=== PATIENT | female | born 1935 | race Hispanic/Latino ===

== ENCOUNTER 2017-11-02 19:55 | Inpatient (IN) | payer MEDICARE, OTHER ==
[~2017-11-02] VITALS: Ht 160 cm; Wt 98.6 kg
[~2017-11-02 19:55] MED LIST: ADVAIR 250-501 EACH INH; CARAFATE1 GM/10 ML PO; COMBIGAN EYE DRO5 ML OP; COREG3.125 MG PO; LASIX20 MG PO; LISINOPRIL10 MG PO; LUMIGAN2.5 M1 OP; MILLIPRED5 MG PO; NIFEDICAL XL30 MG PO; PANTOPRAZOLE SO40 MG PO; PROAIR HFA INH8.5 GM INH; SYNTHROID75 MCG PO; TESSALON PERLE100 MG PO; ULTRAM 50MG50 MG PO; XANAX0.5 MG PO; Z.0.DIOVAN160 MG PO; Z.0.HUMIRA40 MG/0.1 INJ; Z.0.MILLIPRED5 MG PO; Z.0.NORVASC5 MG PO; ZOFRAN ODT4 MG SL
--- OUTSIDE RECORDS SUMMARY | 2017-11-02 19:58 | XMS REPORT ---
Author Author [facility] Address Unknown Phone Unavailable Care Team Providers Care Easement Man Name Role Phone MIKO FORD Unavailable Unavailable TONA SHORE Unavailable Unavailable Problems This patient has no known problems. Allergies, Adverse Reactions, Alerts This patient has no known allergies or adverse reactions. Medications This patient has no known medications. Results Test Description Test Time Test Comments Text Results Atomic Results Result Comments ALPHA FETOPROTEIN (AFP), TUMOR MARKER 2017-03-04 15:21:00 ALPHA-FETOPROTEIN (BEAKER) (test miav=9997) 2.0 ng/mL <10.0 Effective 07/27/2014: Reference Range ChangeNew: <10.0 Previous: 0.0- 8.0HEPATIC FUNCTION [id number] 15:01:00* Test Item Value Reference Range Comments TOTAL PROTEIN (BEAKER) (test dxxn=562) 8.6 gm/dL 6.0-8.3 Specimen moderately hemolyzed ALBUMIN (BEAKER) (test fmag=1740) 3.9 g/dL 3.5-5.0 Specimen moderately hemolyzed BILIRUBIN TOTAL (BEAKER) (test njqq=510) 0.4 mg/dL 0.2-1.2 Specimen moderately hemolyzed BILIRUBIN DIRECT (BEAKER) (test xbli=985) 0.1 mg/dL 0.1-0.5 Specimen moderately hemolyzed ALKALINE PHOSPHATASE (BEAKER) (test fmya=374) 61 U/L 40-150 AST (SGOT) (BEAKER) (test fkti=639) 30 U/L 5-34 Specimen moderately hemolyzed ALT (SGPT) (BEAKER) (test ugpz=456) 15 U/L 6-55 Specimen moderately hemolyzed CBC W/PLT COUNT & AUTO [id number] 14:55:00* Test Item Value Reference Range Comments WHITE BLOOD CELL COUNT (BEAKER) (test kvtg=889) 12.3 K/ L 4.0-10.0 RED BLOOD CELL COUNT (BEAKER) (test gclg=711) 5.32 M/ L 4.00-5.00 HEMOGLOBIN (BEAKER) (test hvlw=624) 14.1 GM/DL 12.0-15.0 HEMATOCRIT (BEAKER) (test ypoj=395) 46.0 % 36.0-45.0 MEAN CORPUSCULAR VOLUME (BEAKER) (test goeu=019) 86.4 fL 82.0-99.0 MEAN CORPUSCULAR HEMOGLOBIN (BEAKER) (test pbjx=471) 26.6 pg 27.0-33.0 MEAN CORPUSCULAR HEMOGLOBIN CONC (BEAKER) (test aynz=542) 30.8 GM/DL 32.0- 36.0 RED CELL DISTRIBUTION WIDTH (BEAKER) (test fxzr=309) 14.6 % 10.3-14.2 PLATELET COUNT (BEAKER) (test tyrv=976) 300 K/CU MM 150-430 MEAN PLATELET VOLUME (BEAKER) (test qeio=437) 7.9 fL 6.5-10.5 NUCLEATED RED BLOOD CELLS (BEAKER) (test fpwh=971) 0 /100 WBC 0-0 NEUTROPHILS RELATIVE PERCENT (BEAKER) (test cxcj=945) 74 % LYMPHOCYTES RELATIVE PERCENT (BEAKER) (test qaqb=573) 16 % MONOCYTES RELATIVE PERCENT (BEAKER) (test ckqq=536) 6 % EOSINOPHILS RELATIVE PERCENT (BEAKER) (test hlgf=577) 3 % BASOPHILS RELATIVE PERCENT (BEAKER) (test jbrk=873) 0 % NEUTROPHILS ABSOLUTE COUNT (BEAKER) (test hyxw=336) 9.14 K/ L 1.80-8.00 LYMPHOCYTES ABSOLUTE COUNT (BEAKER) (test gjco=363) 2.02 K/ L 1.48-4.50 MONOCYTES ABSOLUTE COUNT (BEAKER) (test ijko=568) 0.77 K/ L 0.00-1.30 EOSINOPHILS ABSOLUTE COUNT (BEAKER) (test lkba=333) 0.36 K/ L 0.00-0.50 BASOPHILS ABSOLUTE COUNT (BEAKER) (test pkun=156) 0.06 K/ L 0.00-0.20 0.00CHEST 2 VIEWS [place] [address] [place] [address] Patient Name: CORAL GILLIS MR #: [id number] : 1935 Age/Sex: 82/F Req #: [id number] [facility] Physician: Ordered by: MIKO FORD MD Report #: [id number] Location: [facility] Room/Bed: Procedure: [id number] DX/ CHEST 2 VIEWS Exam Date: 08/05/17 Exam Time: 1100 REPORT STATUS: Signed PROCEDURE: CHEST 2 VIEWS TECHNIQUE: PA and lateral chest INDICATION: Nonspecific interstitial pneumonia COMPARISON: [facility], DX, CHEST 2 VIEWS, 06/03/2007, 7:15. [facility], DX, CHEST 2 VIEWS, 12/12/2015, 7:31. [facility] , DX, CHEST 2 VIEWS, 12/15/2015, 16:22. FINDINGS: Lower lobe and peripheral predominant honeycombing without gross bronchiectasis. No focal airspace opacities. No pleural effusions. Mildly enlarged cardiac silhouette with a tortuous thoracic aorta. Enlarged right paratracheal soft tissue and ricky. Intact skeleton. CONCLUSION: 1. Relative to December 2015 there is no interval change in findings of NSIP, including lower lung zone predominant fibrosis. Fibrosis has increased relative to May 2007. 2. Right paratracheal and bilateral hilar soft tissue fullness is also stable , likely representing lymphadenopathy. Dictated by: Raul Pacheco M.D. on 08/05/2017 at 11:43 Electronically approved by: Raul Pacheco M.D. on 08/05/2017 at 11:43 Dictated By: RAUL PACHECO MD [id number] Transcribed By: MAINOR on 08/05/17 1143 COPY TO: MIKO FORD MD
[2017-11-02] MEDS ORDERED: PANTOPRAZOLE 40 MG 10ML VIAL IV STA (20:00)
[2017-11-02] MEDS ORDERED: NITROGLYCERIN 2% OINT 1 GM PKT TOP ONE (20:00)
[2017-11-02] MEDS ORDERED: ONDANSETRON HCL INJ 2 MG/ML VIAL IV STA (20:00)
[2017-11-02] MEDS ORDERED: PANTOPRAZOLE 40 MG 10ML VIAL ONE (20:13)
[2017-11-02] MEDS ORDERED: ONDANSETRON HCL INJ 2 MG/ML VIAL ONE (20:13)
[2017-11-02] MEDS ORDERED: DIATRIZOATE MEGL/DIATRIZOA SOD 30 ML BTL PO ONE (20:14)
[2017-11-02 20:40] LABS: BASOPHILS % 0.3 % (0.0-1.0); EOSINOPHILS # (AUTO) 0.1 (0.0-0.4); EOSINOPHILS % 0.7 % (0.0-6.0); HEMATOCRIT 42.3 % (34.2-44.1); LYMPHOCYTES # (AUTO) 2.4 (1.0-3.2); LYMPHOCYTES % 23.5 % (18.0-39.1); MEAN CORPUSCULAR HGB CONC 33.1 g/dL (31-35); MEAN CORPUSCULAR VOLUME 81.5 fL (81-99); MONOCYTES # (AUTO) 0.8 (0.2-0.8); MONOCYTES % 7.6 % (4.4-11.3); NEUTROPHILS # (AUTO) 6.9 (2.1-6.9); NEUTROPHILS % 67.2 % (38.7-80.0); PLATELET COUNT 340 x10e3/uL (140-360); RED BLOOD COUNT 5.19 x10e6/uL (3.6-5.1); RED CELL DISTRIBUTION WIDTH 14.8 % (11.7-14.4)
[2017-11-02 20:44] LABS: INR 1.02; PARTIAL THROMBOPLASTIN TIME 27.3 seconds (23.8-35.5); PROTHROMBIN TIME 12.6 seconds (11.9-14.5)
--- NOTE | 2017-11-02 20:50 | Diagnostic Imaging Report ---
EXAMINATION: CHEST SINGLE (PORTABLE) INDICATION: Chest pain COMPARISON: Chest x-ray on 12/07/2015 FINDINGS: TUBES and LINES: None. LUNGS: Lungs are not well inflated. There is evidence of perihilar and peripheral bibasilar predominant interstitial changes with few punctate nodularities There is no evidence of pneumonia or pulmonary edema. PLEURA: No pleural effusion or pneumothorax. HEART AND MEDIASTINUM: Cardiac size is mildly enlarged. There are atherosclerotic calcifications within the aorta. Persistent thickening of the right paratracheal stripe BONES AND SOFT TISSUES: No acute osseous lesion. Soft tissues are unremarkable. UPPER ABDOMEN: No free air under the diaphragm. IMPRESSION: 1. Findings compatible with chronic interstitial fibrosis and nodularity most likely related to remote granulomatous infection. 2. Stable right peritracheal stripe thickening since 2015 Signed by: Dr. Wan Pope M.D. on 11/02/2017 8:46 PM
[2017-11-02 20:52] LABS: ALANINE AMINOTRANSFERASE 41 IU/L (0-55); ALBUMIN/GLOBULIN RATIO 0.8 (0.8-2.0); ALKALINE PHOSPHATASE 114 IU/L (40-150); AMYLASE 111 U/L (25-125); ANION GAP 16.6 mmol/L (8-16); BLOOD UREA NITROGEN 31 mg/dL (7-26); BUN/CREATININE RATIO 18 (6-25); CALCIUM 9.4 mg/dL (8.4-10.2); CARBON DIOXIDE 23 mmol/L (22-29); CHLORIDE 104 mmol/L (98-107); CREATINE KINASE 58 IU/L (29-168); CREATININE, SERUM 1.72 mg/dL (0.57-1.11); EST GLOMERULAR FILTRATION RATE 28 ML/MIN (60-); GLUCOSE 134 mg/dL (74-118); LIPASE 41 U/L (8-78); MAGNESIUM 2.2 MG/DL (1.3-2.1); POTASSIUM 3.6 mmol/L (3.5-5.1); SODIUM 140 mmol/L (136-145)
--- NOTE | 2017-11-02 21:00 | Diagnostic Imaging Report ---
EXAMINATION: Head CT HISTORY: Headache, hypertension, vomiting COMPARISON: Head CT on 01/10/2016 TECHNIQUE: Multidetector axial images were obtained without contrast from the foramen magnum to the vertex . The images were reconstructed using brain and bone algorithms. Thin section brain images were reformatted into coronal and sagittal planes. Intravenous contrast: None. Motion/streaking artifact limits the evaluation of the skull base and posterior cranial fossa. FINDINGS: Parenchyma: 1. Unchanged mild chronic microvascular ischemic changes. 2. No mass or hemorrhage. No CT evidence of acute territorial vascular insult. Extra-axial spaces:No abnormal density. No extra-axial fluid collections Brain volume: Normal for age. Ventricles: No hydrocephalus or displacement. Arteries: No density suggestive of thrombus. Dural sinuses: No abnormal density. Extra-axial spaces: No abnormal density. Foramen magnum: No mass, Chiari malformation, or basilar invagination. Sella: Partially into, mostly CSF filled. Paranasal/mastoid sinuses: Imaged portions unremarkable. Skull/Scalp: No lytic or blastic lesions. No fractures. IMPRESSION: 1. No acute intracranial hemorrhage or cortical infarcts. 2. Stable mild chronic microvascular ischemic changes compared to head CT on 11/27/15. Signed by: Dr. Manisha Mondragon M.D. on 11/02/2017 8:57 PM
--- NOTE | 2017-11-02 21:02 | Diagnostic Imaging Report ---
EXAM: CT Abdomen and Pelvis WITHOUT contrast INDICATION: Chest pain and left upper quadrant pain COMPARISON: None. TECHNIQUE: Abdomen and pelvis were scanned utilizing a multidetector helical scanner from the lung base to the pubic symphysis without administration of IV contrast. Absence of intravenous contrast decreases sensitivity for detection of focal lesions and vascular pathology. Coronal and sagittal reformations were obtained. Routine protocol was performed. IV CONTRAST: None. ORAL CONTRAST: Water RADIATION DOSE: Total DLP: 452.66 mGy*cm Estimated effective dose: (DLP x 0.015 x size factor) mSv COMPLICATIONS: None FINDINGS: LINES and TUBES: None. LOWER THORAX: Changes in the lung bases consistent with senile fibrosis demonstrating minimal honeycombing and traction bronchiectasis. These findings are sometimes described as UIP, however, unlikely for patient's age HEPATOBILIARY: No focal hepatic lesions. No biliary ductal dilation. GALLBLADDER: There are cholecystectomy clips. SPLEEN: No splenomegaly. PANCREAS: No focal masses or ductal dilatation. ADRENALS: No adrenal nodules KIDNEYS/URETERS: Diffuse atrophy of the right kidney with cystic changes. Left kidney is within normal limits demonstrating a upper pole 1.6 cm simple cyst. No stones. GI TRACT: No abnormal distention, wall thickening, or evidence of bowel obstruction. There are diverticula within the colon without evidence of diverticulitis. Appendix is normal. PELVIC ORGANS/BLADDER: Unremarkable. LYMPH NODES: No lymphadenopathy. VESSELS: There is moderate atherosclerotic disease in the aorta and major arterial branches. PERITONEUM / RETROPERITONEUM: No free air or fluid. BONES: There are severe degenerative changes in the lumbar spine predominantly involving the facet joints with anterolisthesis of L4 on L5.. SOFT TISSUES: Unremarkable. IMPRESSION: 1. No evidence of acute intra-abdominal or pelvic abnormality. 2. Changes in the lung bases compatible with senile pulmonary fibrosis. 3. Moderate atherosclerotic disease 4. Colonic diverticulosis without diverticulitis. Signed by: Dr. Wan Pope M.D. on 11/02/2017 8:58 PM
[2017-11-02 21:03] LABS: B-TYPE NATRIURETIC PEPTIDE2 182.7 pg/mL (0-100)
[2017-11-02] MEDS ORDERED: HYDRALAZINE HCL 20 MG/ML VIAL IV STA (21:20)
[2017-11-02] MEDS ORDERED: COMBIGAN EYE DRO5 ML OU (21:41)
[2017-11-02] MEDS ORDERED: LUMIGAN2.5 M1 OU (21:41)
[2017-11-02] MEDS ORDERED: ACTONEL150 MG PO (21:41)
[2017-11-02 22:28] LABS: BILIRUBIN,URINE NEGATIVE (NEGATIVE); KETONES,URINE NEGATIVE (NEGATIVE); LEUKOCYTE ESTERASE ,URINE NEGATIVE (NEGATIVE); NITRITE,URINE NEGATIVE (NEGATIVE); PROTEIN,URINE DIPSTICK 3+ (NEGATIVE); URINE UROBILINOGEN 0.2 mg/dL (0.2 - 1)
[2017-11-02 22:40] LABS: CLARITY,URINE CLEAR (CLEAR); COLOR,URINE YELLOW (YELLOW)
[2017-11-02 22:42] LABS: BACTERIA,URINE FEW /HPF; EPITHELIAL CELLS,URINE FEW /LPF
[2017-11-02] MEDS ORDERED: SODIUM CHLORIDE 0.9% 1000ML 1,000 ML IV SCH (23:45)
[2017-11-03] VITALS (9 sets, daily range): BP systolic 127–252; BP diastolic 62–122
[2017-11-03] MEDS: NITROGLYCERIN 2% OINT 1 GM PKT TOP SCH ×2 (01:06→05:26)
[2017-11-03] MEDS: HYDRALAZINE HCL 20 MG/ML VIAL IV PRN ×3 (01:14→11:15)
[2017-11-03] MEDS: ONDANSETRON HCL INJ 2 MG/ML VIAL IV PRN ×2 (02:00→07:43)
[2017-11-03 03:24] LABS: CREATINE KINASE MB 1.4 ng/mL (0-5.0)
[2017-11-03] MEDS: ASPIRIN 81 MG ENTERIC COATED PO SCH (07:43)
[2017-11-03] MEDS: NIFEDIPINE CR 30 MG TAB PO SCH ×3 (07:45→08:43)
[2017-11-03] MEDS: FAMOTIDINE 20 MG/2 ML VIAL IV SCH ×2 (08:00→22:14)
[2017-11-03] MEDS ORDERED: CARVEDILOL 3.125 MG TAB PO SCH (09:00)
[2017-11-03] MEDS ORDERED: PANTOPRAZOLE 40 MG 10ML VIAL IV SCH (09:00)
[2017-11-03] MEDS: CLONIDINE HCL 0.1 MG TAB PO PRN (11:50)
[2017-11-03] MEDS ORDERED: LISINOPRIL 10 MG TAB PO SCH (13:30)
[2017-11-03] MEDS: SODIUM CHLORIDE 0.45% 1,000 ML IV SCH ×2 (14:58→16:27)
[2017-11-03 15:48] LABS: BASOPHILS % 0.2 % (0.0-1.0); EOSINOPHILS # (AUTO) 0.2 (0.0-0.4); EOSINOPHILS % 1.9 % (0.0-6.0); HEMATOCRIT 37.3 % (34.2-44.1); HEMOGLOBIN 12.1 g/dL (12.0-16.0); LYMPHOCYTES # (AUTO) 1.9 (1.0-3.2); LYMPHOCYTES % 19.9 % (18.0-39.1); MEAN CORPUSCULAR HGB CONC 32.4 g/dL (31-35); MEAN CORPUSCULAR VOLUME 83.3 fL (81-99); MONOCYTES # (AUTO) 0.9 (0.2-0.8); MONOCYTES % 9.9 % (4.4-11.3); NEUTROPHILS # (AUTO) 6.3 (2.1-6.9); NEUTROPHILS % 67.6 % (38.7-80.0); PLATELET COUNT 290 x10e3/uL (140-360); RED BLOOD COUNT 4.48 x10e6/uL (3.6-5.1); RED CELL DISTRIBUTION WIDTH 15.1 % (11.7-14.4)
[2017-11-03 16:13] LABS: ALBUMIN 3.2 g/dL (3.5-5.0); ALBUMIN/GLOBULIN RATIO 0.9 (0.8-2.0); ANION GAP 14.9 mmol/L (8-16); CALCIUM 8.4 mg/dL (8.4-10.2); CHOL/HDL RATIO 3.2 (3.0-3.6); CREATININE, SERUM 1.87 mg/dL (0.57-1.11); POTASSIUM 3.9 mmol/L (3.5-5.1)
[2017-11-03] MEDS: PANTOPRAZOLE SOD 40 MG TABEC PO SCH (16:27)
[2017-11-03] MEDS: CARVEDILOL 12.5 MG TAB PO SCH (16:27)
--- NOTE | 2017-11-03 16:27 | History and Physical ---
PRIMARY CARE PHYSICIAN: Dr. Disha Pascual. ATTENDING PHYSICIAN: Dr. Brian Meyers. CHIEF COMPLAINT: Hypertensive urgency associated with nausea and vomiting, associated with side effects of Tylenol No. 3 and Codeine. HISTORY OF PRESENT ILLNESS: Patient is an 82-year-old female with hypertension, hypothyroidism, and severe rheumatoid arthritis, getting Humira every 2 weeks. The patient basically was in pain. She was getting Tylenol No. 3 and apparently she was unable to tolerate the medication. This induced nausea and vomiting, subsequently came to the emergency room with epigastric pain and headaches, and her blood pressure was 222/145. Patient was given antiemetic. She is still having high blood pressure. She received nifedipine XL and remained elevated. Her blood pressure now is 212/104. The patient remains stable however. PAST MEDICAL HISTORY 1. Severe rheumatoid arthritis with joint deformity, especially of the hand and chronic pain of the back, neck, and shoulder. 2. Hypertension. 3. History of glaucoma. 4. Reflux. 5. Osteoporosis. ALLERGIES: CODEINE, CEFUROXIME, DILTIAZEM, AND LEVOTHYROXINE. PAST SURGICAL HISTORY: Noncontributory. SOCIAL HISTORY: Patient does not smoke or use alcohol. No recreational drugs. REVIEW OF SYSTEMS: Nausea and vomiting, improving. PHYSICAL EXAMINATION VITAL SIGNS: Temperature is 98, blood pressure 212/104, previously on admission was 222/145, heart rate 97, and respirations 18. GENERAL: The patient seems comfortable. She is not in any distress. HEENT: Normocephalic, atraumatic. Anicteric. NECK: Supple grossly. PULMONARY: Diminished breath sounds without any wheezing or rales. CARDIOVASCULAR: Regular rate and rhythm. ABDOMEN: Soft. EXTREMITIES: Joint deformity without any gross edema or cyanosis. NEUROLOGIC: No focal deficit. LABORATORY: Sodium is 140, potassium 3.6, chloride 104, bicarb 23, BUN 31, creatinine 1.7, and glucose is 1.34. WBC is 10, hemoglobin 14, hematocrit 42, and platelets is 340. IMPRESSION 1. Intractable nausea and vomiting associated WITH hypertensive urgency, most likely secondary to Codeine-induced side effect. 2. Dehydration, nausea, and vomiting. 3. Baseline rheumatoid arthritis. 4. Baseline chronic pain. PLAN: Half normal saline 75 mL an hour. Blood pressure control. Continue with same home medications except for the Lasix. Nifedipine XL. We will monitor the patient closely, adjust her medications, and Will follow up on a closely basis. Job#: [id number] NELIDA
[2017-11-03] MEDS ORDERED: PREDNISONE5 MG PO (16:33)
[2017-11-03 16:37] LABS: CREATINE KINASE MB 1.1 ng/mL (0-5.0)
[2017-11-03] MEDS ORDERED: NIFEDIPINE CR 30 MG TAB PO SCH (21:00)
[2017-11-03] MEDS: LISINOPRIL 10 MG TAB PO SCH (22:14)
[2017-11-04 00:15] VITALS: BP 181/91
[2017-11-04] MEDS: HYDRALAZINE HCL 20 MG/ML VIAL IV PRN (00:43)
[2017-11-04 04:20] VITALS: BP 163/77
[2017-11-04] MEDS ORDERED: NIFEDIPINE CR 30 MG TAB PO SCH (06:00)
[2017-11-04 06:38] VITALS: BP 163/77
[2017-11-04] MEDS: LEVOTHYROXINE SODIUM 88 MCG TAB PO SCH (06:38)
[2017-11-04 07:05] LABS: BASOPHILS # (AUTO) 0.1 (0.0-0.1); BASOPHILS % 0.5 % (0.0-1.0); EOSINOPHILS # (AUTO) 0.3 (0.0-0.4); EOSINOPHILS % 3.1 % (0.0-6.0); HEMATOCRIT 37.8 % (34.2-44.1); HEMOGLOBIN 12.2 g/dL (12.0-16.0); LYMPHOCYTES # (AUTO) 2.5 (1.0-3.2); MEAN CORPUSCULAR HEMOGLOBIN 26.9 pg (28-32); MEAN CORPUSCULAR HGB CONC 32.3 g/dL (31-35); MEAN CORPUSCULAR VOLUME 83.4 fL (81-99); MONOCYTES % 9.1 % (4.4-11.3); NEUTROPHILS # (AUTO) 6.6 (2.1-6.9); NEUTROPHILS % 62.6 % (38.7-80.0); PLATELET COUNT 277 x10e3/uL (140-360); RED BLOOD COUNT 4.53 x10e6/uL (3.6-5.1); RED CELL DISTRIBUTION WIDTH 15.4 % (11.7-14.4)
[2017-11-04] MEDS: PANTOPRAZOLE SOD 40 MG TABEC PO SCH ×2 (07:50→16:25)
[2017-11-04] MEDS: CARVEDILOL 12.5 MG TAB PO SCH ×2 (08:00→16:50)
[2017-11-04] MEDS: BIMATOPROST(OPTH) 2.5 ML BOTTLE OP SCH (08:05)
[2017-11-04] MEDS: ASPIRIN 81 MG ENTERIC COATED PO SCH (08:05)
[2017-11-04] MEDS: PREDNISONE 5 MG TAB PO SCH (08:05)
[2017-11-04] MEDS: LISINOPRIL 10 MG TAB PO SCH ×2 (08:05→16:50)
[2017-11-04] MEDS: FAMOTIDINE 20 MG/2 ML VIAL IV SCH ×2 (08:05→21:03)
[2017-11-04] MEDS: BRIMONIDINE/TIMOLOL (OPTH SOLN 5 ML DRPETTE OP SCH (08:05)
[2017-11-04 08:34] VITALS: BP 177/80
[2017-11-04] MEDS ORDERED: PREDNISOLONE 1 MG PO SCH (09:00)
[2017-11-04] MEDS ORDERED: NIFEDIPINE CR 30 MG TAB PO NR (09:30)
[2017-11-04] MEDS: SODIUM CHLORIDE 0.45% 1,000 ML IV SCH (16:10)
[2017-11-04 16:58] VITALS: BP 160/80
[2017-11-04 20:00] VITALS: BP 144/70
[2017-11-05] VITALS: BP 146/82
[2017-11-05 04:00] VITALS: BP 201/106
[2017-11-05] MEDS: HYDRALAZINE HCL 20 MG/ML VIAL IV PRN (05:38)
[2017-11-05 05:49] VITALS: BP 201/106
[2017-11-05] MEDS: LEVOTHYROXINE SODIUM 88 MCG TAB PO SCH (06:24)
[2017-11-05] MEDS: SODIUM CHLORIDE 0.45% 1,000 ML IV SCH ×2 (06:25→17:25)
[2017-11-05 07:08] LABS: ALBUMIN 3.1 g/dL (3.5-5.0); ALBUMIN/GLOBULIN RATIO 0.8 (0.8-2.0); ANION GAP 12.2 mmol/L (8-16); CALCIUM 8.5 mg/dL (8.4-10.2); CREATININE, SERUM 1.89 mg/dL (0.57-1.11); POTASSIUM 4.2 mmol/L (3.5-5.1)
[2017-11-05] MEDS: PANTOPRAZOLE SOD 40 MG TABEC PO SCH ×2 (08:00→16:31)
[2017-11-05] MEDS: CARVEDILOL 12.5 MG TAB PO SCH ×2 (08:00→16:31)
[2017-11-05] MEDS: LISINOPRIL 10 MG TAB PO SCH ×2 (08:50→16:32)
[2017-11-05] MEDS: FAMOTIDINE 20 MG/2 ML VIAL IV SCH (08:50)
[2017-11-05] MEDS: BRIMONIDINE/TIMOLOL (OPTH SOLN 5 ML DRPETTE OP SCH (08:50)
[2017-11-05] MEDS: PREDNISONE 5 MG TAB PO SCH (08:50)
[2017-11-05] MEDS: ASPIRIN 81 MG ENTERIC COATED PO SCH (08:50)
[2017-11-05] MEDS: BIMATOPROST(OPTH) 2.5 ML BOTTLE OP SCH (08:50)
[2017-11-05] MEDS: NIFEDIPINE CR 30 MG TAB PO SCH (08:50)
[2017-11-05 08:51] VITALS: BP 119/63
[2017-11-05 15:39] VITALS: BP 169/83
[2017-11-05 20:00] VITALS: BP 182/85
[2017-11-06] VITALS (9 sets, daily range): BP systolic 140–192; BP diastolic 68–90
[2017-11-06] MEDS: LEVOTHYROXINE SODIUM 88 MCG TAB PO SCH (06:00)
[2017-11-06] MEDS: BRIMONIDINE/TIMOLOL (OPTH SOLN 5 ML DRPETTE OP SCH (09:00)
[2017-11-06] MEDS: BIMATOPROST(OPTH) 2.5 ML BOTTLE OP SCH (09:00)
--- NOTE | 2017-11-06 09:20 | Discharge Summary ---
PCP: Dr. Disha Vang FINAL DIAGNOSES 1. Hypertensive malignancy associated with nausea, vomiting and associated with dehydration, elevation of liver enzymes, and intractable headaches, which symptoms now resolved. 2. Side effects to Tylenol No. 3 causing nausea and vomiting, and unable to tolerate any of her blood pressure medication. 3. Baseline rheumatoid arthritis with joint deformity, on multiple medications. SUMMARY: An 82-year-old female came in with intractable nausea, vomiting and severe headache associated with a very elevated blood pressure. Patient's systolic blood pressure was over 210. Patient was with intractable nausea and vomiting, and multiple medications were given. She was having dehydration. BUN and creatinine elevation. The patient was placed on medication. She did better. Blood pressure improved slowly. At this time, she is stable. She is comfortable. The patient will go home today. She will continue with home medications. Adjustment including Coreg 12.5 mg twice a day. The patient will stop the 6.25 mg. Patient is stable and discharged home to follow as an outpatient. She will continue her other medication. Advised the patient to stop the Tylenol No. 3. Her liver enzymes are trending downward. AST is 41 and ALT 74. Total bilirubin 0.6 and alkaline phosphatase is 84. Other blood work including sodium 136, potassium 4.2, chloride 105, bicarb 23, BUN 34, creatinine 1.8, and glucose 105. WBC 10.5, hemoglobin 12, hematocrit 37.8, and platelets is 277,000. The patient was discharged home today. DISCHARGE MEDICATIONS 1. Coreg 12.5 mg twice a day. 2. Zofran ODT 4 mg sublingual q.4 h. as needed for nausea and vomiting. 3. Pepcid 20 mg twice a day for increasing reflux. The patient is stable and discharged home today. Job#: [id number] YOGESH
[2017-11-06] MEDS: FAMOTIDINE 20 MG TAB PO SCH ×2 (09:33→16:25)
[2017-11-06] MEDS: PANTOPRAZOLE SOD 40 MG TABEC PO SCH ×2 (09:33→16:25)
[2017-11-06] MEDS: LISINOPRIL 10 MG TAB PO SCH ×2 (09:34→16:25)
[2017-11-06] MEDS: CARVEDILOL 12.5 MG TAB PO SCH ×2 (09:34→16:25)
[2017-11-06] MEDS: NIFEDIPINE CR 30 MG TAB PO SCH (09:34)
[2017-11-06] MEDS: ASPIRIN 81 MG ENTERIC COATED PO SCH (09:34)
[2017-11-06] MEDS: PREDNISONE 5 MG TAB PO SCH (09:34)
[2017-11-06] MEDS: CLONIDINE HCL 0.1 MG TAB PO PRN (14:40)
[2017-11-06] MEDS: HYDRALAZINE HCL 20 MG/ML VIAL IV PRN (14:40)
== END 2017-11-06 18:32 | disposition home or self-care (01) | DRG 305 ==
LOC: ER 19:55 → MED/SURG3 11-03 00:46
PROVIDERS: ADMIT Internal Medicine; ATTEND Internal Medicine
DX: I16.1 Hypertensive emergency (principal); E86.0 Dehydration; M06.9 Rheumatoid arthritis, unspecified; T40.2X5A Adverse effect of other opioids, initial encounter; H40.9 Unspecified glaucoma; M81.0 Age-related osteoporosis without current pathological fracture; K21.9 Gastro-esophageal reflux disease without esophagitis; K29.70 Gastritis, unspecified, without bleeding
CPT/HCPCS: 36415; 70450; 71045; 74176; 80053; 80061; 81001; 82150; 82550; 82553; 83605; 83690; 83735; 83880; 84484; 85025; 85610; 85730; 87086; 93005; 99284; J0360; J2405; J7030; J7512

== ENCOUNTER 2018-04-05 13:42 | Inpatient (IN) | payer MEDICARE ==
[~2018-04-05] VITALS: Ht 160 cm; Wt 71.7 kg
[~2018-04-05 13:42] MED LIST changes: +ACTONEL150 MG PO; +COMBIGAN EYE DRO5 ML OU; +LUMIGAN2.5 M1 OU; +PREDNISONE5 MG PO
[2018-04-05] MEDS ORDERED: ACETAMINOPHEN 325 MG TAB PO ONE (14:15)
[2018-04-05 14:43] LABS: BACTERIA,URINE RARE /HPF; BILIRUBIN,URINE NEGATIVE (NEGATIVE); CLARITY,URINE CLEAR (CLEAR); COLOR,URINE YELLOW (YELLOW); EPITHELIAL CELLS,URINE FEW /LPF; KETONES,URINE NEGATIVE (NEGATIVE); LEUKOCYTE ESTERASE ,URINE NEGATIVE (NEGATIVE); NITRITE,URINE NEGATIVE (NEGATIVE); PROTEIN,URINE DIPSTICK 1+ (NEGATIVE); RBC,URINE 0-5 /HPF (0-5); URINE UROBILINOGEN 0.2 mg/dL (0.2 - 1); WBC,URINE (MAN) 0-5 /HPF (0-5)
--- NOTE | 2018-04-05 14:56 | Diagnostic Imaging Report ---
EXAMINATION: CHEST 2 VIEWS INDICATION: \S\cough, SOB \S\[id number] \S\1430 COMPARISON: None FINDINGS: PA and lateral views TUBES and LINES: None. LUNGS: Low lung volumes. Diffuse bilateral pulmonary fibrosis with worsening areas of groundglass opacities mainly in both lung bases. No lobar consolidations. PLEURA: No pleural effusion or pneumothorax. HEART AND MEDIASTINUM: Stable mild enlargement of the cardiac silhouette. Tortuous thoracic aorta. BONES AND SOFT TISSUES: No acute osseous lesion. Soft tissues are unremarkable. UPPER ABDOMEN: No free air under the diaphragm. IMPRESSION: Diffuse bilateral pulmonary fibrosis with progressive areas of ground glass opacities may be due to progressive disease or superimposed atypical infection. Signed by: Dr. Florinda Golden M.D. on 04/05/2018 2:52 PM
[2018-04-05] MEDS ORDERED: BENZONATATE 100 MG CAP PO PRN (15:45)
[2018-04-05] MEDS ORDERED: AZITHROMYCIN 500MG/NS 250 ML 250 ML IV STA (15:52)
[2018-04-05 15:54] LABS: BASOPHILS # (AUTO) 0.1 (0.0-0.1); BASOPHILS % 0.4 % (0.0-1.0); EOSINOPHILS # (AUTO) 0.3 (0.0-0.4); EOSINOPHILS % 2.4 % (0.0-6.0); HEMATOCRIT 38.1 % (34.2-44.1); HEMOGLOBIN 12.4 g/dL (12.0-16.0); LYMPHOCYTES # (AUTO) 1.7 (1.0-3.2); LYMPHOCYTES % 13.1 % (18.0-39.1); MEAN CORPUSCULAR HEMOGLOBIN 26.1 pg (28-32); MEAN CORPUSCULAR HGB CONC 32.5 g/dL (31-35); MEAN CORPUSCULAR VOLUME 80.2 fL (81-99); MONOCYTES # (AUTO) 0.9 (0.2-0.8); MONOCYTES % 6.9 % (4.4-11.3); NEUTROPHILS # (AUTO) 9.7 (2.1-6.9); NEUTROPHILS % 76.5 % (38.7-80.0); PLATELET COUNT 384 x10e3/uL (140-360); RED BLOOD COUNT 4.75 x10e6/uL (3.6-5.1); RED CELL DISTRIBUTION WIDTH 14.3 % (11.7-14.4)
[2018-04-05] MEDS ORDERED: AZITHROMYCIN 500MG/NS 250 ML 250 ML IV SCH (16:00)
[2018-04-05] MEDS ORDERED: CEFTRIAXONE SOD 1 GM VIAL IV SCH (16:00)
[2018-04-05 16:15] LABS: B-TYPE NATRIURETIC PEPTIDE2 122.3 pg/mL (0-100)
[2018-04-05 16:17] LABS: ALBUMIN 3.4 g/dL (3.5-5.0); ALBUMIN/GLOBULIN RATIO 0.7 (0.8-2.0); ANION GAP 16.7 mmol/L (8-16); CREATININE, SERUM 1.74 mg/dL (0.57-1.11); POTASSIUM 3.7 mmol/L (3.5-5.1)
[2018-04-05 16:23] LABS: CREATINE KINASE MB 0.9 ng/mL (0-5.0)
[2018-04-05] MEDS ORDERED: ERTAPENEM 1GM/NS 100ML 100 ML IV SCH (16:45)
[2018-04-05] MEDS: SODIUM CHLORIDE 0.9% 1000ML 1,000 ML IV SCH (18:05)
[2018-04-05] MEDS: ALBUTEROL SULF 0.083% NEB SOLN 3 ML NEB NEB SCH ×2 (18:10→22:20)
[2018-04-05 19:30] VITALS: BP 172/79
[2018-04-05] MEDS ORDERED: ALBUTEROL SULFATE HFA 8GM INHALATION AEROSOL INH PRN (20:45)
[2018-04-05] MEDS ORDERED: GUAIFENESIN/CODEINE 10 ML CUP PO PRN (20:45)
[2018-04-05] MEDS: NIFEDIPINE CR 30 MG TAB PO SCH (21:13)
[2018-04-05] MEDS ORDERED: MELATONIN 5 MG TABLET PO PRN (21:15)
[2018-04-05] MEDS: METHYLPREDNISOLONE SOD SUCC 40 MG/ML VIAL IV SCH (21:46)
--- NOTE | 2018-04-05 21:54 | History and Physical ---
CHIEF COMPLAINT: Shortness of breath, cough, congestion, subjective fever. HPI: This is an 82-year-old female with known history of gastritis, rheumatoid arthritis, now also with history of pulmonary fibrosis and also hypertension, uncontrolled, who presents to the ED with complaints of shortness of breath ongoing for the last 1 week at home. Patient reports she recently saw her primary care physician earlier in the week and was given a shot of steroids as well as antibiotics and discharged on oral antibiotics at home. Patient progressively continued to get worse with worsening cough and congestion and subjective fever. Denies any chest pain or palpitations. Due to the worsening shortness of breath, patient came to the ED for further evaluation. Patient denies any history of heart failure and also she is not on any home oxygen. Patient was seen and evaluated at bedside on the medical floor, currently doing well with no other complaints at this time. She is currently on nasal cannula, satting well, and her vital signs are stable. In reviewing her chart, patient had PFT done in the past that was consistent with restrictive lung disease, likely due to idiopathic pulmonary fibrosis. She has been following up with Dr. Edgar pulmonary as an outpatient. REVIEW OF SYSTEMS: Pertinent positive: Shortness of breath, cough, congestion, subjective fever. Pertinent negative: Denies any chest pain, palpitation, nausea, vomiting, diarrhea, dysuria, hematuria, frequency, urgency, lightheadedness, dizziness, abdominal pain, headache, or any other complaints. The rest of the 14-point review of systems have been reviewed with the patient and are negative. ALLERGIES: TO CEFUROXIME, DILTIAZEM, LEVAQUIN. HOME MEDICATIONS: Albuterol. She also takes some eye drops. She takes Humira, 5 mg of prednisone daily, Protonix, nifedipine XL 30 mg daily, lisinopril 10 mg b.i.d., levothyroxine 75 mcg daily, Lasix 20 mg daily. PAST MEDICAL HISTORY: Hypertension, rheumatoid arthritis, pulmonary fibrosis, osteoporosis. SURGICAL HISTORY: None. FAMILY HISTORY: Hypertension and diabetes. SOCIAL HISTORY: Denies any drugs or alcohol. Does not smoke. Good social support. She has children. PHYSICAL EXAMINATION: VITAL SIGNS: Temperature is 98, her T-max was 100.6, pulse 63, respiratory rate is 19, blood pressure 172/79, pulse ox 98% on 3 liters nasal cannula. GENERAL: Not in acute distress, alert and oriented x3, cooperative on exam. HEENT: Head: Normocephalic, atraumatic. Eyes: Pupils equal, round, and reactive to light bilaterally. Extraocular movements intact bilaterally. Throat: No evidence of any erythema or exudates in the posterior pharynx. Has poor dentition. NECK: Supple with good range of motion. PULMONARY: Patient has fine crackles appreciated throughout, more like a Velcro sound. No rhonchi. She did have some expiratory wheezing. Inspiratory effort was good. CARDIOVASCULAR: Positive S1 and S2. No murmurs, rubs, or gallops appreciated. ABDOMEN: Soft, nondistended, nontender to palpation. Bowel sounds are present. MUSCULOSKELETAL: Strength is 5/5 throughout. No evidence of any musculoskeletal deficit on examination. No weakness appreciated. NEUROLOGICAL: Cranial nerves II through XII are grossly intact. No evidence of any neurologic deficits on exam. SKIN: Intact. Warm to touch. Good cap refill. PSYCHIATRIC: Normal affect and mood. EXTREMITIES: No edema. Good range of motion throughout. LABS: White count 12.6, hemoglobin is 12.4, hematocrit is 38, and platelets of 384,000. Chemistry: Sodium 135, potassium 3.7, chloride 99, bicarb 23, anion gap of 16, BUN is 23, creatinine is 1.7 and her baseline creatinine is between 1.5 to 2, glucose 180. Lactic acid is 12, normal. Calcium 9. LFTs were normal. Troponin negative. BNP 122. Albumin is 3.4, lipase is 29. Urinalysis was found to be negative. Blood cultures are pending. IMAGING STUDIES: Chest x-ray shows diffuse bilateral pulmonary fibrosis with progressive areas of ground-glass opacities, may be due to progressive disease or superimposed atypical infection. ASSESSMENT: 1. Acute pulmonary fibrosis exacerbation. 2. Rheumatoid arthritis. 3. Hypertension. 4. Prophylaxis. 5. Chronic kidney disease, stage 4, at baseline. PLAN: At this time, I will consult pulmonary to evaluate the patient. In the past, she has had PFTs consistent with restrictive lung disease, likely consistent with pulmonary fibrosis from underlying rheumatoid arthritis. Will put on IV steroids 40 mg IV q.8, neb treatments, and/or IV azithromycin for the flareup. Will give her some Robitussin with Codeine as well as Tessalon Perles for cough as needed. In relation to her blood pressure, we are going to resume all her home medications and restart her nifedipine XL for tonight. She also will get p.r.n. hydralazine as well. Will also start her on Lovenox for DVT prophylaxis. Resume all her home medications. Put on low-dose IV fluids at 75 mL per hour. Will continue with IV fluids for now. Put on a heart healthy diet. Monitor the patient very closely. Resume same home medications, and consult pulmonary. Job#: [id number]
[2018-04-05 23:35] VITALS: BP 172/79
[2018-04-06] VITALS (7 sets, daily range): BP systolic 144–178; BP diastolic 75–85
[2018-04-06 02:56] LABS: CREATINE KINASE MB 0.7 ng/mL (0-5.0)
[2018-04-06] MEDS: ALBUTEROL SULF 0.083% NEB SOLN 3 ML NEB NEB SCH ×6 (03:20→23:30)
[2018-04-06 04:46] LABS: BASOPHILS % 0.2 % (0.0-1.0); HEMATOCRIT 37.1 % (34.2-44.1); LYMPHOCYTES # (AUTO) 0.9 (1.0-3.2); LYMPHOCYTES % 13.8 % (18.0-39.1); MEAN CORPUSCULAR HEMOGLOBIN 26.3 pg (28-32); MEAN CORPUSCULAR HGB CONC 32.3 g/dL (31-35); MEAN CORPUSCULAR VOLUME 81.4 fL (81-99); MONOCYTES # (AUTO) 0.1 (0.2-0.8); MONOCYTES % 1.3 % (4.4-11.3); NEUTROPHILS # (AUTO) 5.2 (2.1-6.9); NEUTROPHILS % 83.9 % (38.7-80.0); PLATELET COUNT 359 x10e3/uL (140-360); RED BLOOD COUNT 4.56 x10e6/uL (3.6-5.1); RED CELL DISTRIBUTION WIDTH 14.5 % (11.7-14.4)
[2018-04-06 05:05] LABS: ANION GAP 14.2 mmol/L (8-16); CALCIUM 8.6 mg/dL (8.4-10.2); CREATININE, SERUM 1.69 mg/dL (0.57-1.11); POTASSIUM 4.2 mmol/L (3.5-5.1)
[2018-04-06] MEDS: METHYLPREDNISOLONE SOD SUCC 40 MG/ML VIAL IV SCH ×3 (05:54→21:29)
[2018-04-06] MEDS: SODIUM CHLORIDE 0.9% 1000ML 1,000 ML IV SCH ×2 (08:30→13:45)
[2018-04-06] MEDS: LEVOTHYROXINE SODIUM 75 MCG TAB PO SCH (09:00)
[2018-04-06] MEDS ORDERED: BIMATOPROST(OPTH) 2.5 ML BOTTLE OP SCH (09:00)
[2018-04-06] MEDS: FUROSEMIDE 20 MG TAB PO SCH (09:00)
[2018-04-06] MEDS: PANTOPRAZOLE SOD 40 MG TABEC PO SCH ×2 (09:00→17:00)
[2018-04-06 09:11] LABS: CREATINE KINASE MB 0.7 ng/mL (0-5.0)
[2018-04-06] MEDS: BRIMONIDINE/TIMOLOL (OPTH SOLN 5 ML DRPETTE OP SCH (13:00)
[2018-04-06] MEDS: CLINDAMYCIN PHOS 900MG/ D5W 50 50 ML IV SCH ×3 (13:00→21:29)
--- NOTE | 2018-04-06 14:52 | Consultation ---
DATE OF CONSULTATION: April 06, 2018 PULMONARY CONSULTATION A charming but unfortunate 82-year-old woman with a history of interstitial fibrosis, presumably NSIP, shortness of breath, coughing productively for the last 2 weeks despite Ceftin therapy, history of hypothyroidism, glaucoma. ALLERGIES: CARDIZEM, CEFTIN, LEVAQUIN. MEDICATIONS: , Coreg, Lasix, Humira, Levoxyl, nifedipine, Protonix, prednisone 5, ProAir and Carafate, Restasis, Lumigan and Combigan. PAST SURGICAL HISTORY: She has had , gallbladder surgery, cervical spine surgery. SOCIAL HISTORY: She is an ex-smoker, quit 30 years ago. She worked on a farm. FAMILY HISTORY: Positive for strokes and diabetes. PHYSICAL EXAMINATION GENERAL: She is awake and alert, looking her stated age. Severe rheumatoid changes noted. VITAL SIGNS: Temperature 96, pulse 55, blood pressure 144/79. HEAD: Head normocephalic, atraumatic. NECK: Trachea midline. LUNGS: Bilateral rales, right greater than left. Velcro crackles. HEART: Regular rhythm. ABDOMEN: Nontender. EXTREMITIES: [place] neck and rheumatoid deformities noted. ASSESSMENT AND PLAN Therapy for rheumatoid arthritis, NSIP, community-acquired pneumonia, apparently resistant to Ceftin. She is currently on Zithromax, moderate dose of corticosteroids. Check sputum. Consider anti-Staph cover. Thank you for this kind referral. Job#: [id number]
[2018-04-06] MEDS: AZTREONAM 1 GM/NS 50 ML 50 ML IV SCH (15:00)
[2018-04-06] MEDS ORDERED: IPRATROPIUM BROMIDE 0.02% 2.5 ML NEB NEB PRN (16:00)
[2018-04-06] MEDS: AZITHROMYCIN 250 MG TAB PO SCH (16:00)
[2018-04-06] MEDS: LISINOPRIL 10 MG TAB PO SCH (17:00)
[2018-04-06] MEDS: ENOXAPARIN SOD INJ 40 MG/0.4 ML SYR SC SCH (17:00)
[2018-04-06] MEDS: IPRATROPIUM BROMIDE 0.02% 2.5 ML NEB NEB SCH ×2 (19:15→23:30)
[2018-04-06] MEDS: NIFEDIPINE CR 30 MG TAB PO SCH (20:40)
[2018-04-06] MEDS: BIMATOPROST(OPTH) 2.5 ML BOTTLE OP SCH (20:40)
[2018-04-06] MEDS ORDERED: METHYLPREDNISOLONE SOD SUCC 40 MG/ML VIAL IV SCH (22:00)
[2018-04-07] VITALS (7 sets, daily range): BP systolic 139–176; BP diastolic 73–82
[2018-04-07] MEDS: AZTREONAM 1 GM/NS 50 ML 50 ML IV SCH ×2 (02:47→15:00)
[2018-04-07] MEDS: IPRATROPIUM BROMIDE 0.02% 2.5 ML NEB NEB SCH ×6 (03:00→22:40)
[2018-04-07] MEDS: ALBUTEROL SULF 0.083% NEB SOLN 3 ML NEB NEB SCH ×6 (03:00→22:40)
[2018-04-07] MEDS: SODIUM CHLORIDE 0.9% 1000ML 1,000 ML IV SCH (04:49)
[2018-04-07] MEDS: METHYLPREDNISOLONE SOD SUCC 40 MG/ML VIAL IV SCH (05:38)
[2018-04-07] MEDS: CLINDAMYCIN PHOS 900MG/ D5W 50 50 ML IV SCH ×3 (05:38→22:15)
[2018-04-07] MEDS: LEVOTHYROXINE SODIUM 75 MCG TAB PO SCH (09:00)
[2018-04-07] MEDS: PANTOPRAZOLE SOD 40 MG TABEC PO SCH ×2 (09:00→16:45)
[2018-04-07] MEDS: LISINOPRIL 10 MG TAB PO SCH ×2 (09:00→16:45)
[2018-04-07] MEDS: BRIMONIDINE/TIMOLOL (OPTH SOLN 5 ML DRPETTE OP SCH (09:00)
[2018-04-07] MEDS: FUROSEMIDE 20 MG TAB PO SCH (09:00)
[2018-04-07] MEDS: AZITHROMYCIN 250 MG TAB PO SCH (16:00)
[2018-04-07] MEDS: ENOXAPARIN SOD INJ 40 MG/0.4 ML SYR SC SCH (16:46)
[2018-04-07] MEDS ORDERED: METHYLPREDNISOLONE SOD SUCC 40 MG/ML VIAL IV SCH (17:00)
[2018-04-07] MEDS: NIFEDIPINE CR 30 MG TAB PO SCH (22:00)
[2018-04-07] MEDS: BIMATOPROST(OPTH) 2.5 ML BOTTLE OP SCH (22:00)
[2018-04-08] VITALS (9 sets, daily range): BP systolic 133–203; BP diastolic 74–101
[2018-04-08] MEDS: AZTREONAM 1 GM/NS 50 ML 50 ML IV SCH ×2 (02:00→16:02)
[2018-04-08] MEDS: ALBUTEROL SULF 0.083% NEB SOLN 3 ML NEB NEB SCH ×6 (03:00→23:30)
[2018-04-08] MEDS: IPRATROPIUM BROMIDE 0.02% 2.5 ML NEB NEB SCH ×6 (03:00→23:30)
[2018-04-08 04:44] LABS: BASOPHILS % 0.1 % (0.0-1.0); HEMATOCRIT 35.2 % (34.2-44.1); HEMOGLOBIN 11.2 g/dL (12.0-16.0); LYMPHOCYTES # (AUTO) 1.5 (1.0-3.2); LYMPHOCYTES % 11.9 % (18.0-39.1); MEAN CORPUSCULAR HEMOGLOBIN 25.8 pg (28-32); MEAN CORPUSCULAR HGB CONC 31.8 g/dL (31-35); MEAN CORPUSCULAR VOLUME 81.1 fL (81-99); MONOCYTES # (AUTO) 0.7 (0.2-0.8); MONOCYTES % 5.7 % (4.4-11.3); NEUTROPHILS # (AUTO) 10.5 (2.1-6.9); NEUTROPHILS % 81.3 % (38.7-80.0); PLATELET COUNT 406 x10e3/uL (140-360); RED BLOOD COUNT 4.34 x10e6/uL (3.6-5.1); RED CELL DISTRIBUTION WIDTH 14.7 % (11.7-14.4)
[2018-04-08 05:04] LABS: ANION GAP 15.3 mmol/L (8-16); CALCIUM 8.7 mg/dL (8.4-10.2); CREATININE, SERUM 1.6 mg/dL (0.57-1.11); POTASSIUM 4.3 mmol/L (3.5-5.1)
[2018-04-08] MEDS: LEVOTHYROXINE SODIUM 88 MCG TAB PO SCH (06:25)
[2018-04-08] MEDS: CLINDAMYCIN PHOS 900MG/ D5W 50 50 ML IV SCH (06:25)
[2018-04-08] MEDS: BRIMONIDINE/TIMOLOL (OPTH SOLN 5 ML DRPETTE OP SCH (09:10)
[2018-04-08] MEDS: PANTOPRAZOLE SOD 40 MG TABEC PO SCH ×2 (09:10→16:03)
[2018-04-08] MEDS: LISINOPRIL 10 MG TAB PO SCH ×2 (09:10→16:03)
[2018-04-08] MEDS: DOXYCYCLINE HYCLATE TABLET 100 MG TAB PO SCH (10:51)
[2018-04-08] MEDS: HYDRALAZINE HCL 20 MG/ML VIAL IV PRN ×2 (11:03→23:44)
[2018-04-08] MEDS: ENOXAPARIN SOD INJ 40 MG/0.4 ML SYR SC SCH (16:03)
--- NOTE | 2018-04-08 19:33 | Diagnostic Imaging Report ---
EXAM: CT Chest WITHOUT contrast 04/07/2018 1:01 PM INDICATION: \S\PNEUMONIA \S\[id number] \S\1430 \S\Y COMPARISON: Chest radiograph 04/05/2018, CT abdomen and pelvis 11/02/2017, CT chest 12/06/2015 TECHNIQUE: Chest was scanned utilizing a multidetector helical scanner from the lung apex through the level of the adrenal glands without administration of IV contrast due to inspiration and expiration. Prone views were also obtained. Absence of intravenous contrast decreases sensitivity for detection of lymphadenopathy and vascular pathology. Coronal and sagittal reformations were obtained. High-resolution protocol was performed. IV CONTRAST: None COMPLICATIONS: None RADIATION DOSE: Total DLP: 1658.9 mGy*cm Estimated effective dose: (DLP x 0.015 x size factor) mSv CTDIvol has been reviewed. It is below the limits set by the Radiation Protocol Committee (RPC). FINDINGS: LINES/ TUBES: None. LUNGS AND AIRWAYS: Extensive bilateral lower lobe predominant with basilar gradient honeycombing, mild traction bronchiectasis, septal thickening, and mild architectural distortion, no significantly changed when compared to 12/06/2015. No new suspicious pulmonary nodules, masses, or consolidations. PLEURA: The pleural spaces are clear. HEART AND MEDIASTINUM: The thyroid gland is normal. Stable few subcentimeter noncalcified mediastinal lymph nodes, likely reactive. The heart is normal in size. There is no pericardial effusion. Mild coronary artery calcifications. The thoracic aorta is normal in caliber and associated with mild scattered atherosclerotic calcifications. The main pulmonary artery mildly enlarged measuring 3.1 cm in diameter. Small hiatal hernia. UPPER ABDOMEN: Cholecystectomy. Cortical scarring of the right kidney. BONES: The visualized bony thorax is within normal limits. SOFT TISSUES: Unremarkable. IMPRESSION: Diffuse bilateral interstitial lung disease with pattern of Usual interstitial pneumonitis (UIP), stable since 12/06/2015. No new consolidations or suspicious pulmonary nodules. Signed by: Dr. Florinda Golden M.D. on 04/08/2018 7:30 PM
[2018-04-08] MEDS: BIMATOPROST(OPTH) 2.5 ML BOTTLE OP SCH (21:08)
[2018-04-08] MEDS: NIFEDIPINE CR 30 MG TAB PO SCH (21:09)
[2018-04-09] VITALS (9 sets, daily range): BP systolic 151–188; BP diastolic 68–101
[2018-04-09] MEDS: AZTREONAM 1 GM/NS 50 ML 50 ML IV SCH ×2 (02:31→14:55)
[2018-04-09] MEDS: ALBUTEROL SULF 0.083% NEB SOLN 3 ML NEB NEB SCH ×6 (03:00→22:40)
[2018-04-09] MEDS: IPRATROPIUM BROMIDE 0.02% 2.5 ML NEB NEB SCH ×4 (03:00→19:28)
[2018-04-09] MEDS: LEVOTHYROXINE SODIUM 88 MCG TAB PO SCH (05:18)
[2018-04-09] MEDS ORDERED: METHYLPREDNISOLONE SOD SUCC 40 MG/ML VIAL IV SCH (07:30)
[2018-04-09] MEDS: DOXYCYCLINE HYCLATE TABLET 100 MG TAB PO SCH (09:24)
[2018-04-09] MEDS: LISINOPRIL 10 MG TAB PO SCH ×2 (09:24→17:19)
[2018-04-09] MEDS: PANTOPRAZOLE SOD 40 MG TABEC PO SCH ×2 (09:24→17:19)
[2018-04-09] MEDS: BRIMONIDINE/TIMOLOL (OPTH SOLN 5 ML DRPETTE OP SCH (09:24)
[2018-04-09] MEDS: PREDNISONE 10 MG TAB PO SCH (09:25)
[2018-04-09] MEDS ORDERED: IPRATROPIUM BROMIDE 0.02% 2.5 ML NEB NEB SCH (12:00)
[2018-04-09] MEDS: HYDRALAZINE HCL 20 MG/ML VIAL IV PRN (19:32)
[2018-04-09] MEDS: NIFEDIPINE CR 30 MG TAB PO SCH (21:32)
[2018-04-09] MEDS: BIMATOPROST(OPTH) 2.5 ML BOTTLE OP SCH (21:34)
[2018-04-10 00:23] VITALS: BP 143/65
[2018-04-10] MEDS: IPRATROPIUM BROMIDE 0.02% 2.5 ML NEB NEB SCH ×2 (01:00→07:00)
[2018-04-10] MEDS: ALBUTEROL SULF 0.083% NEB SOLN 3 ML NEB NEB SCH ×2 (03:00→07:00)
[2018-04-10] MEDS: AZTREONAM 1 GM/NS 50 ML 50 ML IV SCH (03:27)
[2018-04-10] MEDS: LEVOTHYROXINE SODIUM 88 MCG TAB PO SCH (05:25)
[2018-04-10 05:48] VITALS: BP 126/55
[2018-04-10 07:55] VITALS: BP 189/85
[2018-04-10] MEDS: PANTOPRAZOLE SOD 40 MG TABEC PO SCH (09:04)
[2018-04-10] MEDS: BRIMONIDINE/TIMOLOL (OPTH SOLN 5 ML DRPETTE OP SCH (09:04)
[2018-04-10] MEDS: LISINOPRIL 10 MG TAB PO SCH (09:04)
[2018-04-10] MEDS: PREDNISONE 10 MG TAB PO SCH (09:04)
[2018-04-10] MEDS: DOXYCYCLINE HYCLATE TABLET 100 MG TAB PO SCH (09:04)
[2018-04-10] MEDS ORDERED: DOXYCYCLINE MO100 MG PO (10:14)
[2018-04-10] MEDS ORDERED: MEDROL4 MG (10:15)
[2018-04-10] MEDS ORDERED: TESSALON PERLE100 MG PO (10:16)
--- NOTE | 2018-04-10 13:41 | Discharge Summary ---
PRIMARY CARE PHYSICIAN: Dr. Disha Vang. WAITER/WAITRESS CLUB: Dr. Cornell Edgar. FINAL DIAGNOSES: 1. Acute on chronic exacerbation of pulmonary fibrosis. 2. Community-acquired pneumonia. 3. Acute hypoxia, resolved. SUMMARY: An 82-year-old female came in with hypoxia. Patient has pneumonia. She does have idiopathic pulmonary fibrosis with acute exacerbation. The patient has baseline rheumatoid arthritis as well. She is stable at this time. Her wheezing and coughing have resolved. CT chest confirmed moderate to severe pulmonary fibrosis. Patient states with the tapering steroids she is doing much better. The patient will go home today, follow as an outpatient. She will go home with Medrol Dosepak, Tessalon Perles, and doxycycline monohydrate 100 mg twice a day for 7 days. The patient to follow up with Dr. Cornell Edgar next week. Patient will resume her home medications. Job#: [id number] EV
== END 2018-04-10 11:24 | disposition home or self-care (01) | DRG 196 ==
LOC: ER 13:42 → ERHOLD 17:10 → MED/SURG2 19:09
PROVIDERS: ADMIT Internal Medicine; ATTEND Internal Medicine
DX: J84.112 Idiopathic pulmonary fibrosis (principal); J18.9 Pneumonia, unspecified organism; N18.4 Chronic kidney disease, stage 4 (severe); M06.9 Rheumatoid arthritis, unspecified; I12.9 Hypertensive chronic kidney disease with stage 1 through stage 4 chronic kidney disease, or unspecified chronic kidney disease; M81.0 Age-related osteoporosis without current pathological fracture; R09.02 Hypoxemia; Z87.891 Personal history of nicotine dependence; E03.9 Hypothyroidism, unspecified; H40.9 Unspecified glaucoma; M20.039 Swan-neck deformity of unspecified finger(s); Z16.29 Resistance to other single specified antibiotic
CPT/HCPCS: 36415; 71046; 71250; 80048; 80053; 81001; 82550; 82553; 83605; 83690; 83880; 84484; 85025; 87040; 93005; 94640; 99284; J0360; J0456; J1650; J2920; J7030

== ENCOUNTER → 2020-11-21 | Outpatient (CLI) | payer MEDICARE ==
[~2020-11-21] MED LIST changes: +CARVEDILOL12.5 MG PO; +DIATRIZOATE MEGL/DIATRIZOA SOD 30 ML BTL PO ONE; +DOXYCYCLINE MO100 MG PO; +MEDROL4 MG; +PHENERGAN25 MG/1 ML PO; +RESTASIS1 EACH OU; +RHOPRESSA2.5 ML OU; +SYMBICORT 80-10.2 GM INH; +ZOFRAN4 MG SL
[2020-11-21 10:19] LABS: CREATININE, SERUM 2.26 mg/dL (0.57-1.11)
== END ==
LOC: CT 09:20
PROVIDERS: ATTEND Internal Medicine Gastroenterology
DX: R10.9 Unspecified abdominal pain (principal)
CPT/HCPCS: 36415; 74176; 82565; 84520

== ENCOUNTER → 2021-01-16 | Outpatient (CLI) | payer MEDICARE ==
[~2021-01-16] MED LIST changes: -DIATRIZOATE MEGL/DIATRIZOA SOD 30 ML BTL PO ONE
== END ==
LOC: RAD 11:12
PROVIDERS: ATTEND Internal Medicine Pulmonary Disease
DX: R05 Cough (principal); J84.9 Interstitial pulmonary disease, unspecified
CPT/HCPCS: 71046

== ENCOUNTER 2021-05-05 08:14 | Inpatient (IN) | payer MEDICARE ==
[~2021-05-05] VITALS: Ht 157.5 cm; Wt 64.0 kg
[2021-05-05] VITALS (7 sets, daily range): BP systolic 143–153; BP diastolic 57–71
[2021-05-05 08:56] LABS: BASOPHILS % 0.1 % (0.0-1.0); EOSINOPHILS # (AUTO) 0.1 (0.0-0.4); EOSINOPHILS % 1.2 % (0.0-6.0); HEMATOCRIT 29.8 % (34.2-44.1); HEMOGLOBIN 9.8 g/dL (12.0-16.0); LYMPHOCYTES # (AUTO) 1.4 (1.0-3.2); LYMPHOCYTES % 18.7 % (18.0-39.1); MEAN CORPUSCULAR HEMOGLOBIN 25.5 pg (28-32); MEAN CORPUSCULAR HGB CONC 32.9 g/dL (31-35); MEAN CORPUSCULAR VOLUME 77.6 fL (81-99); MONOCYTES # (AUTO) 0.8 (0.2-0.8); MONOCYTES % 10.7 % (4.4-11.3); NEUTROPHILS % 68.7 % (38.7-80.0); PLATELET COUNT 408 x10e3/uL (140-360); RED BLOOD COUNT 3.84 x10e6/uL (3.6-5.1); RED CELL DISTRIBUTION WIDTH 14.2 % (11.7-14.4)
[2021-05-05 09:26] LABS: ALBUMIN 3.1 g/dL (3.5-5.0); ALBUMIN/GLOBULIN RATIO 0.7 (0.8-2.0); ANION GAP 15.1 mmol/L (8-16); CALCIUM 8.2 mg/dL (8.4-10.2); CREATININE, SERUM 2.58 mg/dL (0.57-1.11); POTASSIUM 4.1 mmol/L (3.5-5.1)
[2021-05-05 10:30] LABS: BLOOD UREA NITROGEN 44 mg/dL (7-26); GLUCOSE 108 mg/dL (74-118); OSMOLALITY,SERUM 258 mOsm/kg (278-305); SODIUM 122 mmol/L (136-145)
[2021-05-05 11:02] LABS: CLARITY,URINE CLEAR (CLEAR); COLOR,URINE YELLOW (YELLOW); LEUKOCYTE ESTERASE ,URINE NEGATIVE (NEGATIVE); NITRITE,URINE NEGATIVE (NEGATIVE); PROTEIN,URINE DIPSTICK 2+ (NEGATIVE)
[2021-05-05 11:03] LABS: KETONES,URINE NEGATIVE (NEGATIVE); URINE UROBILINOGEN 0.2 mg/dL (0.2 - 1)
[2021-05-05 11:19] LABS: RBC,URINE 0-5 /HPF (0-5); WBC,URINE (MAN) 0-5 /HPF (0-5)
[2021-05-05 11:20] LABS: BACTERIA,URINE RARE /HPF; EPITHELIAL CELLS,URINE FEW /LPF
[2021-05-05 12:22] LABS: POTASSIUM,URINE 8.5 mmol/L
[2021-05-05 12:23] LABS: SODIUM,URINE < 20 mmol/L
[2021-05-05] MEDS: SODIUM CHLORIDE 0.9% 1000ML 1,000 ML IV SCH (16:03)
[2021-05-05 16:35] LABS: FREE THYROXINE INDEX 2.2435 (1.4-3.8); THYROID STIMULATING HORMONE 3.871 uIU/mL (0.350-4.940)
[2021-05-05] MEDS: SODIUM BICARBONATE 650 MG TAB PO SCH (21:19)
[2021-05-05] MEDS: SODIUM CHLORIDE 1 GM TAB PO SCH (21:19)
[2021-05-06] VITALS (8 sets, daily range): BP systolic 117–197; BP diastolic 61–82
[2021-05-06] MEDS: SODIUM CHLORIDE 0.9% 1000ML 1,000 ML IV SCH ×2 (05:38→17:12)
[2021-05-06] MEDS: NIFEDIPINE CR 30 MG TAB PO SCH ×2 (06:08→17:14)
[2021-05-06] MEDS ORDERED: LEVOTHYROXINE SODIUM 88 MCG TAB PO SCH (07:30)
[2021-05-06 07:58] LABS: ALBUMIN/GLOBULIN RATIO 0.8 (0.8-2.0); ANION GAP 13.2 mmol/L (8-16); CREATININE, SERUM 2.34 mg/dL (0.57-1.11); POTASSIUM 4.2 mmol/L (3.5-5.1)
[2021-05-06] MEDS ORDERED: LISINOPRIL 10 MG TAB PO SCH (09:00)
[2021-05-06] MEDS: BIMATOPROST(OPTH) 2.5 ML BOTTLE OP SCH ×2 (09:00→12:57)
[2021-05-06] MEDS: NETARSUDIL MESYLATE OU SCH (09:00)
[2021-05-06] MEDS: BRIMONIDINE/TIMOLOL (OPTH SOLN 5 ML DRPETTE OP SCH ×2 (09:00→12:56)
[2021-05-06] MEDS ORDERED: CARVEDILOL 12.5 MG TAB PO SCH (09:00)
[2021-05-06] MEDS: SODIUM CHLORIDE 1 GM TAB PO SCH ×3 (09:48→20:40)
[2021-05-06] MEDS: PANTOPRAZOLE SOD 40 MG TABEC PO SCH ×2 (09:48→17:12)
[2021-05-06] MEDS: PREDNISONE 20 MG TAB PO SCH (09:48)
[2021-05-06] MEDS: SODIUM BICARBONATE 650 MG TAB PO SCH ×3 (09:48→20:40)
[2021-05-06] MEDS: CLINDAMYCIN 300MG 50 ML IV SCH ×2 (13:46→20:40)
[2021-05-06] MEDS: AZTREONAM 1 GM/NS 50 ML 50 ML IV SCH (15:18)
[2021-05-06] MEDS: CARVEDILOL 3.125 MG TAB PO SCH (17:12)
[2021-05-07] VITALS (7 sets, daily range): BP systolic 157–191; BP diastolic 70–84
[2021-05-07] MEDS: CLINDAMYCIN 300MG 50 ML IV SCH ×4 (01:31→20:04)
[2021-05-07] MEDS: AZTREONAM 1 GM/NS 50 ML 50 ML IV SCH ×2 (02:22→14:34)
[2021-05-07] MEDS: SODIUM CHLORIDE 0.9% 1000ML 1,000 ML IV SCH (04:38)
[2021-05-07] MEDS: LEVOTHYROXINE SODIUM 88 MCG TAB PO SCH ×2 (05:46→05:47)
[2021-05-07 06:52] LABS: BASOPHILS % 0.2 % (0.0-1.0); EOSINOPHILS # (AUTO) 0.2 (0.0-0.4); EOSINOPHILS % 1.8 % (0.0-6.0); HEMATOCRIT 29.5 % (34.2-44.1); HEMOGLOBIN 9.5 g/dL (12.0-16.0); LYMPHOCYTES # (AUTO) 1.9 (1.0-3.2); LYMPHOCYTES % 21.9 % (18.0-39.1); MEAN CORPUSCULAR HEMOGLOBIN 25.6 pg (28-32); MEAN CORPUSCULAR HGB CONC 32.2 g/dL (31-35); MEAN CORPUSCULAR VOLUME 79.5 fL (81-99); MONOCYTES # (AUTO) 1.2 (0.2-0.8); MONOCYTES % 13.5 % (4.4-11.3); NEUTROPHILS # (AUTO) 5.4 (2.1-6.9); NEUTROPHILS % 61.9 % (38.7-80.0); PLATELET COUNT 440 x10e3/uL (140-360); RED BLOOD COUNT 3.71 x10e6/uL (3.6-5.1); RED CELL DISTRIBUTION WIDTH 14.7 % (11.7-14.4)
[2021-05-07 07:31] LABS: ANION GAP 16.1 mmol/L (8-16); CREATININE, SERUM 2.05 mg/dL (0.57-1.11); PHOSPHORUS 3.1 MG/DL (2.3-4.7); POTASSIUM 4.1 mmol/L (3.5-5.1)
[2021-05-07 07:34] LABS: THYROID STIMULATING HORMONE 2.069 uIU/mL (0.350-4.940)
[2021-05-07] MEDS: NETARSUDIL MESYLATE OU SCH (09:00)
[2021-05-07] MEDS: SODIUM BICARBONATE 650 MG TAB PO SCH ×3 (09:31→20:06)
[2021-05-07] MEDS: SODIUM CHLORIDE 1 GM TAB PO SCH ×3 (09:32→20:06)
[2021-05-07] MEDS: PANTOPRAZOLE SOD 40 MG TABEC PO SCH ×2 (09:32→17:33)
[2021-05-07] MEDS: PREDNISONE 20 MG TAB PO SCH (09:32)
[2021-05-07] MEDS: NIFEDIPINE CR 30 MG TAB PO SCH ×2 (09:41→17:34)
[2021-05-07] MEDS: CARVEDILOL 3.125 MG TAB PO SCH ×3 (09:41→19:01)
[2021-05-07] MEDS: FOLIC ACID 1 MG TAB PO SCH (17:32)
[2021-05-07] MEDS: HEPARIN SOD (PORCINE) 5,000 UNIT/ML VIAL SC SCH (17:43)
[2021-05-08] VITALS (8 sets, daily range): BP systolic 130–187; BP diastolic 58–96
[2021-05-08] MEDS: AZTREONAM 1 GM/NS 50 ML 50 ML IV SCH ×2 (01:08→14:51)
[2021-05-08] MEDS: CLINDAMYCIN 300MG 50 ML IV SCH ×4 (02:05→20:00)
[2021-05-08] MEDS: LEVOTHYROXINE SODIUM 88 MCG TAB PO SCH (06:35)
[2021-05-08] MEDS: BIMATOPROST(OPTH) 2.5 ML BOTTLE OP SCH (08:44)
[2021-05-08] MEDS: BRIMONIDINE/TIMOLOL (OPTH SOLN 5 ML DRPETTE OP SCH (08:44)
[2021-05-08] MEDS: PREDNISONE 20 MG TAB PO SCH (08:45)
[2021-05-08] MEDS: SODIUM BICARBONATE 650 MG TAB PO SCH ×3 (08:45→20:06)
[2021-05-08] MEDS: FOLIC ACID 1 MG TAB PO SCH ×2 (08:45→08:47)
[2021-05-08] MEDS: CARVEDILOL 3.125 MG TAB PO SCH ×2 (08:45→17:01)
[2021-05-08] MEDS: SODIUM CHLORIDE 1 GM TAB PO SCH ×2 (08:45→12:29)
[2021-05-08] MEDS: NIFEDIPINE CR 30 MG TAB PO SCH ×2 (08:45→17:02)
[2021-05-08] MEDS: PANTOPRAZOLE SOD 40 MG TABEC PO SCH ×2 (08:45→17:02)
[2021-05-08] MEDS: HEPARIN SOD (PORCINE) 5,000 UNIT/ML VIAL SC SCH ×2 (08:50→17:09)
[2021-05-08] MEDS: NETARSUDIL MESYLATE OU SCH (09:00)
[2021-05-08 09:45] LABS: % IRON SATURATION 12 % (15-50); IRON 27 ug/dL (50-170); TOTAL IRON BINDING CAPACITY 234 ug/dL (261-478); TRANSFERRIN 167 mg/dL (180-382)
[2021-05-08] MEDS: NON-FORMULARY MEDICATION (Cyclosporine (Restasis) 1 DROP) OU SCH ×2 (10:00→18:34)
[2021-05-08] MEDS ORDERED: FUROSEMIDE INJ 10 MG/ML 4 ML VIAL IV ONE (11:15)
[2021-05-08] MEDS: IRON SUCROSE 100 MG in SODIUM CHLORIDE 0.9% 100 ML 100 ML IV SCH (12:29)
[2021-05-09] VITALS (7 sets, daily range): BP systolic 140–181; BP diastolic 70–86
[2021-05-09] MEDS: AZTREONAM 1 GM/NS 50 ML 50 ML IV SCH ×2 (01:55→13:09)
[2021-05-09] MEDS: CLINDAMYCIN 300MG 50 ML IV SCH ×3 (02:00→15:38)
[2021-05-09] MEDS: BIMATOPROST(OPTH) 2.5 ML BOTTLE OP SCH (08:32)
[2021-05-09] MEDS: LEVOTHYROXINE SODIUM 88 MCG TAB PO SCH (08:32)
[2021-05-09] MEDS: BRIMONIDINE/TIMOLOL (OPTH SOLN 5 ML DRPETTE OP SCH (08:32)
[2021-05-09] MEDS: SODIUM BICARBONATE 650 MG TAB PO SCH ×3 (08:33→20:42)
[2021-05-09] MEDS: FOLIC ACID 1 MG TAB PO SCH ×2 (08:33)
[2021-05-09] MEDS: PANTOPRAZOLE SOD 40 MG TABEC PO SCH ×2 (08:33→16:23)
[2021-05-09] MEDS: NIFEDIPINE CR 30 MG TAB PO SCH ×2 (08:33→16:23)
[2021-05-09] MEDS: CARVEDILOL 3.125 MG TAB PO SCH ×2 (08:33→16:18)
[2021-05-09] MEDS: SODIUM CHLORIDE 1 GM TAB PO SCH (08:33)
[2021-05-09] MEDS: PREDNISONE 20 MG TAB PO SCH (08:33)
[2021-05-09] MEDS: HEPARIN SOD (PORCINE) 5,000 UNIT/ML VIAL SC SCH ×2 (08:34→16:59)
[2021-05-09] MEDS: NETARSUDIL MESYLATE OU SCH (09:00)
[2021-05-09] MEDS ORDERED: LACTULOSE SYRUP 20 GM/30 ML UDC PO ONE (10:30)
[2021-05-09] MEDS ORDERED: MAGNESIUM HYDROXIDE 30 ML UDC PO PRN ×2 (11:00→15:00)
[2021-05-09] MEDS ORDERED: MAGNESIUM HYDROXIDE 30 ML UDC PO ONE (11:30)
[2021-05-09] MEDS ORDERED: BISACODYL 10 MG SUPP PR ONE (11:30)
[2021-05-09 12:39] LABS: ALBUMIN 3.1 g/dL (3.5-5.0); ALBUMIN/GLOBULIN RATIO 0.8 (0.8-2.0); ANION GAP 12.9 mmol/L (8-16); CALCIUM 8.3 mg/dL (8.4-10.2); CREATININE, SERUM 1.98 mg/dL (0.57-1.11); POTASSIUM 3.9 mmol/L (3.5-5.1)
[2021-05-09] MEDS: IRON SUCROSE 100 MG in SODIUM CHLORIDE 0.9% 100 ML 100 ML IV SCH (13:07)
[2021-05-09] MEDS ORDERED: IRON SUCROSE 100 MG in SODIUM CHLORIDE 0.9% 100 ML 100 ML IV SCH (14:45)
[2021-05-09] MEDS ORDERED: CITRATE OF MAGNESIA 300ML BOTTLE PO NR (15:00)
[2021-05-09] MEDS: DOCUSATE SODIUM 100 MG CAP PO SCH (16:17)
[2021-05-09] MEDS: NON-FORMULARY MEDICATION (Cyclosporine (Restasis) 1 DROP) OU SCH (17:00)
[2021-05-09] MEDS: BUDESONIDE/FORMOTEROL FUMARATE 80/4.5MCG 6.9 GM INH AEROSOL IH SCH (19:30)
[2021-05-10] VITALS (13 sets, daily range): BP systolic 123–195; BP diastolic 72–114
[2021-05-10 05:16] LABS: BASOPHILS % 0.2 % (0.0-1.0); EOSINOPHILS # (AUTO) 0.2 (0.0-0.4); EOSINOPHILS % 1.5 % (0.0-6.0); HEMATOCRIT 30.6 % (34.2-44.1); HEMOGLOBIN 9.6 g/dL (12.0-16.0); MEAN CORPUSCULAR HEMOGLOBIN 25.3 pg (28-32); MEAN CORPUSCULAR HGB CONC 31.4 g/dL (31-35); MEAN CORPUSCULAR VOLUME 80.7 fL (81-99); MONOCYTES # (AUTO) 1.2 (0.2-0.8); MONOCYTES % 10.2 % (4.4-11.3); NEUTROPHILS # (AUTO) 8.3 (2.1-6.9); NEUTROPHILS % 70.3 % (38.7-80.0); PLATELET COUNT 408 x10e3/uL (140-360); RED BLOOD COUNT 3.79 x10e6/uL (3.6-5.1); RED CELL DISTRIBUTION WIDTH 14.9 % (11.7-14.4)
[2021-05-10] MEDS: CARVEDILOL 3.125 MG TAB PO SCH ×2 (05:32→15:29)
[2021-05-10] MEDS: NIFEDIPINE CR 30 MG TAB PO SCH ×2 (05:33→15:29)
[2021-05-10 05:39] LABS: ALBUMIN 3.1 g/dL (3.5-5.0); ALBUMIN/GLOBULIN RATIO 0.8 (0.8-2.0); CALCIUM 8.5 mg/dL (8.4-10.2); CREATININE, SERUM 1.84 mg/dL (0.57-1.11)
[2021-05-10] MEDS: BUDESONIDE/FORMOTEROL FUMARATE 80/4.5MCG 6.9 GM INH AEROSOL IH SCH (07:48)
[2021-05-10] MEDS ORDERED: FUROSEMIDE INJ 10 MG/ML 4 ML VIAL IV ONE (09:20)
[2021-05-10] MEDS: LEVOTHYROXINE SODIUM 88 MCG TAB PO SCH (09:29)
[2021-05-10] MEDS: PREDNISONE 20 MG TAB PO SCH (09:30)
[2021-05-10] MEDS ORDERED: SODIUM BICARBONATE 650 MG TAB PO SCH (09:30)
[2021-05-10] MEDS: PANTOPRAZOLE SOD 40 MG TABEC PO SCH ×2 (09:30→17:30)
[2021-05-10] MEDS: BRIMONIDINE/TIMOLOL (OPTH SOLN 5 ML DRPETTE OP SCH (09:30)
[2021-05-10] MEDS: FOLIC ACID 1 MG TAB PO SCH (09:30)
[2021-05-10] MEDS: BIMATOPROST(OPTH) 2.5 ML BOTTLE OP SCH (09:30)
[2021-05-10] MEDS: DOCUSATE SODIUM 100 MG CAP PO SCH (09:30)
[2021-05-10] MEDS: HEPARIN SOD (PORCINE) 5,000 UNIT/ML VIAL SC SCH ×2 (09:31→17:31)
[2021-05-10] MEDS: NON-FORMULARY MEDICATION (Cyclosporine (Restasis) 1 DROP) OU SCH ×2 (10:27→17:27)
[2021-05-10] MEDS: NETARSUDIL MESYLATE OU SCH (10:27)
[2021-05-10] MEDS ORDERED: SODIUM CHLORIDE 0.9% 250ML 250 ML ONE ×2 (11:26→23:25)
[2021-05-10] MEDS ORDERED: CHLORTHALIDONE 25 MG TAB PO SCH (11:45)
[2021-05-10] MEDS: DOXYCYCLINE 100MG/NS 100ML 100 ML IV SCH ×2 (13:34→23:19)
[2021-05-10] MEDS ORDERED: HYDRALAZINE HCL 20 MG/ML VIAL IV ONE (13:59)
[2021-05-10] MEDS ORDERED: PIPERACILLIN/TAZOBACTAM 3.375 GM in SODIUM CHLORIDE 0.9% 50ML 50 ML IV SCH (14:00)
[2021-05-10] MEDS: IRON SUCROSE 100 MG in SODIUM CHLORIDE 0.9% 100 ML 100 ML IV SCH (16:21)
[2021-05-10] MEDS ORDERED: ALBUTEROL/IPRATROPIUM 3 ML NEB NEB PRN (17:15)
[2021-05-10] MEDS ORDERED: HYDROCODONE/APAP 5MG-325MG TAB PO PRN (17:15)
[2021-05-10] MEDS: HYDRALAZINE HCL 20 MG/ML VIAL IV PRN (17:27)
[2021-05-10] MEDS: PIPERACILLIN/TAZOBACTAM 3.375 GM in SODIUM CHLORIDE 0.9% 50ML 50 ML IV SCH (17:30)
[2021-05-10] MEDS: SENNA-S TABLET PO SCH (18:10)
[2021-05-10] MEDS: FUROSEMIDE INJ 10 MG/ML 4 ML VIAL IV SCH (21:07)
[2021-05-10] MEDS: METHYLPREDNISOLONE SOD SUCC 40 MG/ML VIAL 1ML IV SCH (21:08)
[2021-05-11] VITALS (7 sets, daily range): BP systolic 113–171; BP diastolic 49–77
[2021-05-11] MEDS: HYDRALAZINE HCL 20 MG/ML VIAL IV PRN (00:07)
[2021-05-11] MEDS: PIPERACILLIN/TAZOBACTAM 3.375 GM in SODIUM CHLORIDE 0.9% 50ML 50 ML IV SCH ×2 (04:59→17:40)
[2021-05-11] MEDS: METHYLPREDNISOLONE SOD SUCC 40 MG/ML VIAL 1ML IV SCH ×3 (05:00→21:25)
[2021-05-11 06:24] LABS: BASOPHILS % 0.1 % (0.0-1.0); HEMATOCRIT 29.7 % (34.2-44.1); HEMOGLOBIN 9.4 g/dL (12.0-16.0); LYMPHOCYTES # (AUTO) 0.5 (1.0-3.2); LYMPHOCYTES % 3.7 % (18.0-39.1); MEAN CORPUSCULAR HEMOGLOBIN 25.3 pg (28-32); MEAN CORPUSCULAR HGB CONC 31.6 g/dL (31-35); MEAN CORPUSCULAR VOLUME 79.8 fL (81-99); MONOCYTES # (AUTO) 0.3 (0.2-0.8); MONOCYTES % 2.1 % (4.4-11.3); NEUTROPHILS # (AUTO) 11.8 (2.1-6.9); NEUTROPHILS % 92.9 % (38.7-80.0); PLATELET COUNT 402 x10e3/uL (140-360); RED BLOOD COUNT 3.72 x10e6/uL (3.6-5.1)
[2021-05-11 06:53] LABS: ANION GAP 15.8 mmol/L (8-16); CALCIUM 8.4 mg/dL (8.4-10.2); CREATININE, SERUM 2.08 mg/dL (0.57-1.11); MAGNESIUM 1.9 MG/DL (1.3-2.1); PHOSPHORUS 4.2 MG/DL (2.3-4.7); POTASSIUM 3.8 mmol/L (3.5-5.1)
[2021-05-11] MEDS: ALBUTEROL/IPRATROPIUM 3 ML NEB NEB SCH ×2 (07:00→12:30)
[2021-05-11] MEDS: BUDESONIDE/FORMOTEROL FUMARATE 80/4.5MCG 6.9 GM INH AEROSOL IH SCH (07:12)
[2021-05-11] MEDS: PANTOPRAZOLE SOD 40 MG TABEC PO SCH (07:30)
[2021-05-11] MEDS: LEVOTHYROXINE SODIUM 88 MCG TAB PO SCH (07:30)
[2021-05-11] MEDS: BIMATOPROST(OPTH) 2.5 ML BOTTLE OP SCH (09:00)
[2021-05-11] MEDS: NIFEDIPINE CR 30 MG TAB PO SCH ×2 (09:00→17:47)
[2021-05-11] MEDS: FOLIC ACID 1 MG TAB PO SCH (09:00)
[2021-05-11] MEDS ORDERED: CHLORTHALIDONE 25 MG TAB PO SCH (09:00)
[2021-05-11] MEDS: FUROSEMIDE INJ 10 MG/ML 4 ML VIAL IV SCH ×2 (09:00→21:25)
[2021-05-11] MEDS: NETARSUDIL MESYLATE OU SCH (09:00)
[2021-05-11] MEDS: BRIMONIDINE/TIMOLOL (OPTH SOLN 5 ML DRPETTE OP SCH (09:00)
[2021-05-11] MEDS: SENNA-S TABLET PO SCH ×2 (09:00→17:47)
[2021-05-11] MEDS: DOXYCYCLINE 100MG/NS 100ML 100 ML IV SCH ×2 (11:00→21:26)
[2021-05-11] MEDS: NON-FORMULARY MEDICATION (Cyclosporine (Restasis) 1 DROP) OU SCH ×2 (14:52→17:40)
[2021-05-11] MEDS: CARVEDILOL 3.125 MG TAB PO SCH ×2 (14:53→17:41)
[2021-05-11] MEDS: HEPARIN SOD (PORCINE) 5,000 UNIT/ML VIAL SC SCH ×2 (16:50→17:49)
[2021-05-12] VITALS (9 sets, daily range): BP systolic 135–159; BP diastolic 68–92
[2021-05-12] MEDS: METHYLPREDNISOLONE SOD SUCC 40 MG/ML VIAL 1ML IV SCH ×2 (06:00→21:52)
[2021-05-12] MEDS: PIPERACILLIN/TAZOBACTAM 3.375 GM in SODIUM CHLORIDE 0.9% 50ML 50 ML IV SCH ×2 (06:00→17:07)
[2021-05-12 06:41] LABS: BASOPHILS % 0.1 % (0.0-1.0); HEMATOCRIT 29.9 % (34.2-44.1); HEMOGLOBIN 9.6 g/dL (12.0-16.0); LYMPHOCYTES # (AUTO) 0.6 (1.0-3.2); LYMPHOCYTES % 2.5 % (18.0-39.1); MEAN CORPUSCULAR HEMOGLOBIN 25.5 pg (28-32); MEAN CORPUSCULAR HGB CONC 32.1 g/dL (31-35); MEAN CORPUSCULAR VOLUME 79.3 fL (81-99); MONOCYTES # (AUTO) 1.1 (0.2-0.8); MONOCYTES % 4.7 % (4.4-11.3); NEUTROPHILS # (AUTO) 21.4 (2.1-6.9); NEUTROPHILS % 91.5 % (38.7-80.0); PLATELET COUNT 426 x10e3/uL (140-360); RED BLOOD COUNT 3.77 x10e6/uL (3.6-5.1); RED CELL DISTRIBUTION WIDTH 15.2 % (11.7-14.4)
[2021-05-12] MEDS: ALBUTEROL/IPRATROPIUM 3 ML NEB NEB SCH ×2 (06:43→12:50)
[2021-05-12 07:27] LABS: ALBUMIN 2.7 g/dL (3.5-5.0); ALBUMIN/GLOBULIN RATIO 0.6 (0.8-2.0); ANION GAP 18.5 mmol/L (8-16); CALCIUM 8.6 mg/dL (8.4-10.2); CREATININE, SERUM 2.67 mg/dL (0.57-1.11); POTASSIUM 3.5 mmol/L (3.5-5.1)
[2021-05-12] MEDS: NETARSUDIL MESYLATE OU SCH (09:00)
[2021-05-12] MEDS: FUROSEMIDE INJ 10 MG/ML 4 ML VIAL IV SCH (09:15)
[2021-05-12] MEDS: PANTOPRAZOLE SOD 40 MG TABEC PO SCH (09:17)
[2021-05-12] MEDS: LEVOTHYROXINE SODIUM 88 MCG TAB PO SCH (09:17)
[2021-05-12] MEDS: NON-FORMULARY MEDICATION (Cyclosporine (Restasis) 1 DROP) OU SCH ×2 (09:19→16:14)
[2021-05-12] MEDS: BIMATOPROST(OPTH) 2.5 ML BOTTLE OP SCH (09:19)
[2021-05-12] MEDS: BRIMONIDINE/TIMOLOL (OPTH SOLN 5 ML DRPETTE OP SCH (09:19)
[2021-05-12] MEDS: FOLIC ACID 1 MG TAB PO SCH (09:20)
[2021-05-12] MEDS: NIFEDIPINE CR 30 MG TAB PO SCH ×2 (09:20→17:06)
[2021-05-12] MEDS: SENNA-S TABLET PO SCH ×2 (09:20→17:06)
[2021-05-12] MEDS: CARVEDILOL 3.125 MG TAB PO SCH ×2 (09:20→17:06)
[2021-05-12] MEDS ORDERED: ONDANSETRON HCL INJ 2MG/ML 2ML 2 MG/ML VIAL IV PRN (10:15)
[2021-05-12] MEDS: ACETAMINOPHEN 325 MG TAB PO PRN ×2 (10:53→17:07)
[2021-05-12] MEDS ORDERED: POTASSIUM CHLORIDE 20MEQ/100ML 100 ML IV ONE (11:15)
[2021-05-12] MEDS: DOXYCYCLINE 100MG/NS 100ML 100 ML IV SCH ×2 (11:59→23:00)
[2021-05-12] MEDS: BENZONATATE 100 MG CAP PO SCH ×2 (12:23→17:06)
[2021-05-12 14:27] LABS: BASOPHILS # (AUTO) 0.1 (0.0-0.1); BASOPHILS % 0.2 % (0.0-1.0); HEMATOCRIT 31.7 % (34.2-44.1); HEMOGLOBIN 10.2 g/dL (12.0-16.0); LYMPHOCYTES # (AUTO) 0.6 (1.0-3.2); LYMPHOCYTES % 2.2 % (18.0-39.1); MEAN CORPUSCULAR HEMOGLOBIN 25.7 pg (28-32); MEAN CORPUSCULAR HGB CONC 32.2 g/dL (31-35); MEAN CORPUSCULAR VOLUME 79.8 fL (81-99); MONOCYTES # (AUTO) 1.1 (0.2-0.8); MONOCYTES % 4.3 % (4.4-11.3); NEUTROPHILS # (AUTO) 22.6 (2.1-6.9); NEUTROPHILS % 91.4 % (38.7-80.0); PLATELET COUNT 384 x10e3/uL (140-360); RED BLOOD COUNT 3.97 x10e6/uL (3.6-5.1); RED CELL DISTRIBUTION WIDTH 15.4 % (11.7-14.4)
[2021-05-12] MEDS: BUMETANIDE INJ 0.25MG/ML 4ML VIAL IV SCH ×2 (15:25→21:52)
[2021-05-12] MEDS: HEPARIN SOD (PORCINE) 5,000 UNIT/ML VIAL SC SCH (17:00)
[2021-05-12] MEDS ORDERED: Vancomycin IV 1 GM in SODIUM CHLORIDE 0.9% 250ML 250 ML IV ONE (20:30)
[2021-05-12] MEDS ORDERED: ACETAMINOPHEN 1000 MG/100 ML IV STA (23:24)
[2021-05-12] MEDS ORDERED: FUROSEMIDE INJ 10 MG/ML 4 ML VIAL IV ONE (23:30)
[2021-05-13] VITALS (15 sets, daily range): BP systolic 136–177; BP diastolic 60–121
[2021-05-13 00:08] LABS: ABG PCO2 37 mmHg (35-45); ABG PH 7.49 (7.35-7.45)
[2021-05-13 00:09] LABS: ABG PO2 40 mmHg (80-105)
[2021-05-13 00:10] LABS: ABG HCO3 28 mmol/L (22-26); ABG TCO2 29
[2021-05-13] MEDS: DEXMEDETOMIDINE 400MCG/NS100ML 100 ML IV PRN ×2 (01:45→22:36)
[2021-05-13 02:00] LABS: BASOPHILS # (AUTO) 0.1 (0.0-0.1); BASOPHILS % 0.2 % (0.0-1.0); HEMATOCRIT 31.1 % (34.2-44.1); HEMOGLOBIN 10.1 g/dL (12.0-16.0); LYMPHOCYTES # (AUTO) 0.4 (1.0-3.2); LYMPHOCYTES % 1.2 % (18.0-39.1); MEAN CORPUSCULAR HEMOGLOBIN 25.7 pg (28-32); MEAN CORPUSCULAR HGB CONC 32.5 g/dL (31-35); MEAN CORPUSCULAR VOLUME 79.1 fL (81-99); MONOCYTES # (AUTO) 1.1 (0.2-0.8); MONOCYTES % 3.3 % (4.4-11.3); NEUTROPHILS # (AUTO) 30.8 (2.1-6.9); NEUTROPHILS % 93.6 % (38.7-80.0); PLATELET COUNT 364 x10e3/uL (140-360); RED BLOOD COUNT 3.93 x10e6/uL (3.6-5.1); RED CELL DISTRIBUTION WIDTH 15.5 % (11.7-14.4)
[2021-05-13 02:18] LABS: ALBUMIN 2.6 g/dL (3.5-5.0); ALBUMIN/GLOBULIN RATIO 0.6 (0.8-2.0); ANION GAP 18.1 mmol/L (8-16); CALCIUM 8.6 mg/dL (8.4-10.2); CREATININE, SERUM 2.76 mg/dL (0.57-1.11); POTASSIUM 4.1 mmol/L (3.5-5.1)
[2021-05-13 02:24] LABS: CREATINE KINASE MB 1.4 ng/mL (0-5.0)
[2021-05-13] MEDS: PIPERACILLIN/TAZOBACTAM 3.375 GM in SODIUM CHLORIDE 0.9% 50ML 50 ML IV SCH (05:33)
[2021-05-13] MEDS: BUMETANIDE INJ 0.25MG/ML 4ML VIAL IV SCH ×2 (05:51→12:49)
[2021-05-13 06:02] LABS: BASOPHILS # (AUTO) 0.1 (0.0-0.1); BASOPHILS % 0.2 % (0.0-1.0); HEMATOCRIT 27.1 % (34.2-44.1); HEMOGLOBIN 8.8 g/dL (12.0-16.0); LYMPHOCYTES # (AUTO) 0.5 (1.0-3.2); LYMPHOCYTES % 1.9 % (18.0-39.1); MEAN CORPUSCULAR HEMOGLOBIN 25.9 pg (28-32); MEAN CORPUSCULAR HGB CONC 32.5 g/dL (31-35); MEAN CORPUSCULAR VOLUME 79.7 fL (81-99); MONOCYTES # (AUTO) 0.9 (0.2-0.8); MONOCYTES % 3.2 % (4.4-11.3); NEUTROPHILS # (AUTO) 25.5 (2.1-6.9); NEUTROPHILS % 93.1 % (38.7-80.0); PLATELET COUNT 321 x10e3/uL (140-360); RED CELL DISTRIBUTION WIDTH 15.5 % (11.7-14.4)
[2021-05-13 06:21] LABS: ANION GAP 17.3 mmol/L (8-16); CALCIUM 8.4 mg/dL (8.4-10.2); CREATININE, SERUM 2.91 mg/dL (0.57-1.11); POTASSIUM 4.3 mmol/L (3.5-5.1)
[2021-05-13 06:51] LABS: CLARITY,URINE CLEAR (CLEAR); COLOR,URINE YELLOW (YELLOW)
[2021-05-13 06:52] LABS: BACTERIA,URINE RARE /HPF; EPITHELIAL CELLS,URINE FEW /LPF; KETONES,URINE NEGATIVE (NEGATIVE); LEUKOCYTE ESTERASE ,URINE NEGATIVE (NEGATIVE); NITRITE,URINE NEGATIVE (NEGATIVE); PROTEIN,URINE DIPSTICK 2+ (NEGATIVE); RBC,URINE 0-5 /HPF (0-5); URINE UROBILINOGEN 0.2 mg/dL (0.2 - 1); WBC,URINE (MAN) 0-5 /HPF (0-5)
[2021-05-13] MEDS: ALBUTEROL/IPRATROPIUM 3 ML NEB NEB SCH ×3 (06:55→20:33)
[2021-05-13] MEDS: BENZONATATE 100 MG CAP PO SCH ×2 (09:00→16:47)
[2021-05-13] MEDS: NETARSUDIL MESYLATE OU SCH (09:00)
[2021-05-13] MEDS: BRIMONIDINE/TIMOLOL (OPTH SOLN 5 ML DRPETTE OP SCH (09:00)
[2021-05-13] MEDS: SENNA-S TABLET PO SCH ×2 (09:00→16:47)
[2021-05-13] MEDS ORDERED: FUROSEMIDE 40 MG TAB PO SCH (09:00)
[2021-05-13] MEDS: CARVEDILOL 3.125 MG TAB PO SCH ×2 (09:00→16:47)
[2021-05-13] MEDS: NIFEDIPINE CR 30 MG TAB PO SCH ×2 (09:00→16:47)
[2021-05-13] MEDS: BIMATOPROST(OPTH) 2.5 ML BOTTLE OP SCH (09:00)
[2021-05-13] MEDS: METHYLPREDNISOLONE SOD SUCC 40 MG/ML VIAL 1ML IV SCH ×2 (09:37→21:13)
[2021-05-13] MEDS: MEROPENEM 1 GM in SODIUM CHLORIDE 0.9% 100 ML IV SCH ×2 (09:41→21:13)
[2021-05-13] MEDS: HEPARIN SOD (PORCINE) 5,000 UNIT/ML VIAL SC SCH ×2 (09:44→16:44)
[2021-05-13] MEDS ORDERED: MEROPENEM 1 GM VIAL ONE (09:45)
[2021-05-13] MEDS ORDERED: ACETAMINOPHEN 1000 MG/100 ML IV PRN (10:00)
[2021-05-13] MEDS ORDERED: SODIUM CHLORIDE 0.9% 100 ML ONE (10:06)
[2021-05-13] MEDS: NON-FORMULARY MEDICATION (Cyclosporine (Restasis) 1 DROP) OU SCH ×2 (10:48→16:43)
[2021-05-13 10:56] LABS: ABG HCO3 30 mmol/L (22-26); ABG PCO2 42 mmHg (35-45); ABG PH 7.47 (7.35-7.45); ABG PO2 67 mmHg (80-105); ABG TCO2 32
[2021-05-13] MEDS: CYANOCOBALAMIN IV SCH ×2 (11:50→22:35)
[2021-05-13] MEDS: THIAMINE HCL IV SCH ×2 (11:50→22:35)
[2021-05-13] MEDS: FOLIC ACID IV SCH ×2 (11:50→22:35)
[2021-05-13] MEDS: [UNRECOGNIZED DRUG - OTHER] IV SCH ×2 (11:50→22:35)
[2021-05-13] MEDS: LEVOTHYROXINE SODIUM 100 MCG/VIAL IV SCH (11:51)
[2021-05-13] MEDS: METOPROLOL TARTRATE INJ 1 MG/ML VIAL IV SCH ×3 (12:00→23:43)
[2021-05-13] MEDS: DOXYCYCLINE 100MG/NS 100ML 100 ML IV SCH ×2 (12:00→22:35)
[2021-05-14] VITALS (14 sets, daily range): BP systolic 150–188; BP diastolic 67–89
[2021-05-14] MEDS: HYDRALAZINE HCL 20 MG/ML VIAL IV PRN ×3 (01:14→15:04)
[2021-05-14] MEDS: ALBUTEROL/IPRATROPIUM 3 ML NEB NEB SCH ×4 (03:25→18:54)
[2021-05-14 04:36] LABS: BASOPHILS % 0.1 % (0.0-1.0); HEMATOCRIT 28.6 % (34.2-44.1); HEMOGLOBIN 9.1 g/dL (12.0-16.0); LYMPHOCYTES # (AUTO) 0.4 (1.0-3.2); LYMPHOCYTES % 1.7 % (18.0-39.1); MEAN CORPUSCULAR HEMOGLOBIN 25.8 pg (28-32); MEAN CORPUSCULAR HGB CONC 31.8 g/dL (31-35); MONOCYTES # (AUTO) 0.3 (0.2-0.8); MONOCYTES % 1.3 % (4.4-11.3); NEUTROPHILS # (AUTO) 19.8 (2.1-6.9); NEUTROPHILS % 95.6 % (38.7-80.0); PLATELET COUNT 305 x10e3/uL (140-360); RED BLOOD COUNT 3.53 x10e6/uL (3.6-5.1); RED CELL DISTRIBUTION WIDTH 15.9 % (11.7-14.4)
[2021-05-14 05:00] LABS: ANION GAP 20.2 mmol/L (8-16); CALCIUM 8.3 mg/dL (8.4-10.2); CREATININE, SERUM 2.78 mg/dL (0.57-1.11); POTASSIUM 4.2 mmol/L (3.5-5.1)
[2021-05-14] MEDS: LEVOTHYROXINE SODIUM 100 MCG/VIAL IV SCH (06:03)
[2021-05-14] MEDS: METOPROLOL TARTRATE INJ 1 MG/ML VIAL IV SCH ×3 (06:06→19:29)
[2021-05-14] MEDS: METHYLPREDNISOLONE SOD SUCC 40 MG/ML VIAL 1ML IV SCH ×2 (08:37→22:27)
[2021-05-14] MEDS: MEROPENEM 1 GM in SODIUM CHLORIDE 0.9% 100 ML IV SCH ×2 (08:37→21:00)
[2021-05-14] MEDS: HEPARIN SOD (PORCINE) 5,000 UNIT/ML VIAL SC SCH ×2 (08:38→19:29)
[2021-05-14] MEDS: BUMETANIDE INJ 0.25MG/ML 4ML VIAL IV SCH (08:40)
[2021-05-14] MEDS: NIFEDIPINE CR 30 MG TAB PO SCH ×2 (09:00→17:00)
[2021-05-14] MEDS: CARVEDILOL 3.125 MG TAB PO SCH ×2 (09:00→16:30)
[2021-05-14] MEDS: BENZONATATE 100 MG CAP PO SCH ×2 (09:00→17:00)
[2021-05-14] MEDS: NETARSUDIL MESYLATE OU SCH (09:00)
[2021-05-14] MEDS: SENNA-S TABLET PO SCH ×2 (09:00→17:00)
[2021-05-14] MEDS: NON-FORMULARY MEDICATION (Cyclosporine (Restasis) 1 DROP) OU SCH ×2 (09:17→17:32)
[2021-05-14] MEDS: BIMATOPROST(OPTH) 2.5 ML BOTTLE OP SCH (09:17)
[2021-05-14] MEDS: BRIMONIDINE/TIMOLOL (OPTH SOLN 5 ML DRPETTE OP SCH (09:17)
[2021-05-14 09:24] LABS: ABG HCO3 27 mmol/L (22-26); ABG PCO2 42 mmHg (35-45); ABG PH 7.42 (7.35-7.45); ABG PO2 126 mmHg (80-105); ABG TCO2 28
[2021-05-14] MEDS ORDERED: CLONIDINE HCL 0.1 MG/24 HR 1 EA PATCH TOP SCH (10:45)
[2021-05-14] MEDS: DOXYCYCLINE 100MG/NS 100ML 100 ML IV SCH ×2 (12:36→23:21)
[2021-05-14] MEDS: THIAMINE HCL IV SCH (13:44)
[2021-05-14] MEDS: CYANOCOBALAMIN IV SCH (13:44)
[2021-05-14] MEDS: [UNRECOGNIZED DRUG - OTHER] IV SCH (13:44)
[2021-05-14] MEDS: FOLIC ACID IV SCH (13:44)
[2021-05-15] VITALS (13 sets, daily range): BP systolic 173–203; BP diastolic 73–95
[2021-05-15] MEDS: THIAMINE HCL IV SCH ×2 (00:07→18:27)
[2021-05-15] MEDS: METOPROLOL TARTRATE INJ 1 MG/ML VIAL IV SCH ×5 (00:07→23:09)
[2021-05-15] MEDS: FOLIC ACID IV SCH ×2 (00:07→18:27)
[2021-05-15] MEDS: [UNRECOGNIZED DRUG - OTHER] IV SCH ×2 (00:07→18:27)
[2021-05-15] MEDS: CYANOCOBALAMIN IV SCH ×2 (00:07→18:27)
[2021-05-15] MEDS: HYDRALAZINE HCL 20 MG/ML VIAL IV PRN ×4 (00:08→21:40)
[2021-05-15] MEDS: ALBUTEROL/IPRATROPIUM 3 ML NEB NEB SCH ×4 (03:25→19:10)
[2021-05-15] MEDS: LEVOTHYROXINE SODIUM 100 MCG/VIAL IV SCH (04:44)
[2021-05-15] MEDS: DEXMEDETOMIDINE 400MCG/NS100ML 100 ML IV PRN ×3 (06:12→19:05)
[2021-05-15] MEDS: BENZONATATE 100 MG CAP PO SCH ×2 (09:00→17:00)
[2021-05-15] MEDS: NETARSUDIL MESYLATE OU SCH (09:00)
[2021-05-15] MEDS: CARVEDILOL 3.125 MG TAB PO SCH ×2 (09:00→17:00)
[2021-05-15] MEDS: SENNA-S TABLET PO SCH ×2 (09:00→17:00)
[2021-05-15] MEDS: NIFEDIPINE CR 30 MG TAB PO SCH ×2 (09:00→17:00)
[2021-05-15] MEDS: MEROPENEM 1 GM in SODIUM CHLORIDE 0.9% 100 ML IV SCH (09:53)
[2021-05-15] MEDS: BUMETANIDE INJ 0.25MG/ML 4ML VIAL IV SCH (09:53)
[2021-05-15] MEDS: METHYLPREDNISOLONE SOD SUCC 40 MG/ML VIAL 1ML IV SCH ×2 (09:53→21:00)
[2021-05-15] MEDS: NON-FORMULARY MEDICATION (Cyclosporine (Restasis) 1 DROP) OU SCH ×2 (09:53→17:20)
[2021-05-15] MEDS: BRIMONIDINE/TIMOLOL (OPTH SOLN 5 ML DRPETTE OP SCH (09:53)
[2021-05-15] MEDS: BIMATOPROST(OPTH) 2.5 ML BOTTLE OP SCH (09:53)
[2021-05-15] MEDS ORDERED: CLONIDINE HCL 0.2 MG/24 HR 1 EA PATCH TOP SCH (10:15)
[2021-05-15] MEDS: HEPARIN SOD (PORCINE) 5,000 UNIT/ML VIAL SC SCH ×2 (10:16→18:21)
[2021-05-15] MEDS ORDERED: CLONIDINE HCL 0.3MG/24 HR PATCH TOP SCH (10:30)
[2021-05-15] MEDS ORDERED: NITROGLYCERIN 2% OINT 1 GM PKT TOP SCH (14:30)
[2021-05-15 15:31] LABS: HEMATOCRIT 31.3 % (34.2-44.1); HEMOGLOBIN 9.8 g/dL (12.0-16.0); MEAN CORPUSCULAR HEMOGLOBIN 25.4 pg (28-32); MEAN CORPUSCULAR HGB CONC 31.3 g/dL (31-35); MEAN CORPUSCULAR VOLUME 81.1 fL (81-99); PLATELET COUNT 308 x10e3/uL (140-360); RED BLOOD COUNT 3.86 x10e6/uL (3.6-5.1); RED CELL DISTRIBUTION WIDTH 16.3 % (11.7-14.4)
[2021-05-15 15:42] LABS: BASOPHILS % 0.1 % (0.0-1.0); LYMPHOCYTES # (AUTO) 0.4 (1.0-3.2); LYMPHOCYTES % 3.1 % (18.0-39.1); MONOCYTES # (AUTO) 0.3 (0.2-0.8); MONOCYTES % 2.2 % (4.4-11.3); NEUTROPHILS # (AUTO) 12.6 (2.1-6.9); NEUTROPHILS % 93.3 % (38.7-80.0)
[2021-05-15 15:49] LABS: ALBUMIN 2.1 g/dL (3.5-5.0); ALBUMIN/GLOBULIN RATIO 0.5 (0.8-2.0); CALCIUM 8.4 mg/dL (8.4-10.2); CREATININE, SERUM 2.94 mg/dL (0.57-1.11)
[2021-05-15] MEDS: NITROGLYCERIN 0.2 MG/HR PATCH TOP SCH (17:19)
[2021-05-15] MEDS: TERAZOSIN HCL 1 MG CAP PO SCH (20:25)
[2021-05-16] VITALS (13 sets, daily range): BP systolic 147–217; BP diastolic 69–119
[2021-05-16] MEDS: HYDRALAZINE HCL 20 MG/ML VIAL IV PRN ×4 (01:25→22:30)
[2021-05-16] MEDS: ALBUTEROL/IPRATROPIUM 3 ML NEB NEB SCH ×4 (03:58→20:30)
[2021-05-16] MEDS: THIAMINE HCL IV SCH (05:50)
[2021-05-16] MEDS: CYANOCOBALAMIN IV SCH (05:50)
[2021-05-16] MEDS: FOLIC ACID IV SCH (05:50)
[2021-05-16] MEDS: [UNRECOGNIZED DRUG - OTHER] IV SCH (05:50)
[2021-05-16] MEDS: LEVOTHYROXINE SODIUM 100 MCG/VIAL IV SCH (06:00)
[2021-05-16] MEDS: METOPROLOL TARTRATE INJ 1 MG/ML VIAL IV SCH ×3 (06:00→17:22)
[2021-05-16 08:46] LABS: BASOPHILS % 0.1 % (0.0-1.0); HEMATOCRIT 30.8 % (34.2-44.1); HEMOGLOBIN 9.5 g/dL (12.0-16.0); LYMPHOCYTES # (AUTO) 0.6 (1.0-3.2); LYMPHOCYTES % 4.7 % (18.0-39.1); MEAN CORPUSCULAR HEMOGLOBIN 25.7 pg (28-32); MEAN CORPUSCULAR HGB CONC 30.8 g/dL (31-35); MEAN CORPUSCULAR VOLUME 83.2 fL (81-99); MONOCYTES # (AUTO) 0.6 (0.2-0.8); MONOCYTES % 5.1 % (4.4-11.3); NEUTROPHILS # (AUTO) 11.1 (2.1-6.9); NEUTROPHILS % 88.6 % (38.7-80.0); PLATELET COUNT 306 x10e3/uL (140-360); RED CELL DISTRIBUTION WIDTH 16.4 % (11.7-14.4)
[2021-05-16] MEDS: BUMETANIDE INJ 0.25MG/ML 4ML VIAL IV SCH (08:59)
[2021-05-16] MEDS: METHYLPREDNISOLONE SOD SUCC 40 MG/ML VIAL 1ML IV SCH ×2 (08:59→20:23)
[2021-05-16] MEDS: CARVEDILOL 3.125 MG TAB PO SCH ×2 (08:59→16:28)
[2021-05-16] MEDS: BENZONATATE 100 MG CAP PO SCH ×2 (09:00→16:30)
[2021-05-16] MEDS: SENNA-S TABLET PO SCH ×2 (09:00→16:30)
[2021-05-16] MEDS: NIFEDIPINE CR 30 MG TAB PO SCH ×2 (09:00→16:29)
[2021-05-16] MEDS: NON-FORMULARY MEDICATION (Cyclosporine (Restasis) 1 DROP) OU SCH ×2 (09:01→16:31)
[2021-05-16] MEDS: BRIMONIDINE/TIMOLOL (OPTH SOLN 5 ML DRPETTE OP SCH (09:01)
[2021-05-16] MEDS: NETARSUDIL MESYLATE OU SCH (09:01)
[2021-05-16] MEDS: BIMATOPROST(OPTH) 2.5 ML BOTTLE OP SCH (09:01)
[2021-05-16 09:07] LABS: ALBUMIN 2.1 g/dL (3.5-5.0); ALBUMIN/GLOBULIN RATIO 0.5 (0.8-2.0); ANION GAP 19.1 mmol/L (8-16); CALCIUM 8.4 mg/dL (8.4-10.2); CREATININE, SERUM 2.85 mg/dL (0.57-1.11); POTASSIUM 4.1 mmol/L (3.5-5.1)
[2021-05-16] MEDS: NITROGLYCERIN 0.2 MG/HR PATCH TOP SCH (09:14)
[2021-05-16] MEDS: HEPARIN SOD (PORCINE) 5,000 UNIT/ML VIAL SC SCH ×2 (09:17→16:57)
[2021-05-16] MEDS ORDERED: LORAZEPAM INJ 2 MG/ML VIAL IV ONE (11:00)
[2021-05-16] MEDS ORDERED: DEXTROSE 5% 1,000 ML IV ONE (11:45)
[2021-05-16] MEDS: DEXMEDETOMIDINE 400MCG/NS100ML 100 ML IV PRN ×2 (11:56→16:33)
[2021-05-16] MEDS: LORAZEPAM INJ 2 MG/ML VIAL IV PRN (13:00)
[2021-05-16] MEDS: TERAZOSIN HCL 1 MG CAP PO SCH (19:49)
[2021-05-17] VITALS: BP 85/84
[2021-05-17] MEDS: HYDRALAZINE HCL 20 MG/ML VIAL IV PRN ×2 (01:30→05:46)
[2021-05-17] MEDS: ALBUTEROL/IPRATROPIUM 3 ML NEB NEB SCH ×4 (01:38→19:40)
[2021-05-17] MEDS: LORAZEPAM INJ 2 MG/ML VIAL IV PRN ×2 (03:41→10:16)
[2021-05-17] MEDS: METOPROLOL TARTRATE INJ 1 MG/ML VIAL IV SCH ×5 (05:45→23:58)
[2021-05-17] MEDS: LEVOTHYROXINE SODIUM 100 MCG/VIAL IV SCH (05:46)
[2021-05-17 07:30] VITALS: BP 160/79
[2021-05-17] MEDS: SENNA-S TABLET PO SCH (09:00)
[2021-05-17] MEDS ORDERED: BUMETANIDE INJ 0.25MG/ML 4ML VIAL IV SCH (09:00)
[2021-05-17] MEDS: NIFEDIPINE CR 30 MG TAB PO SCH (09:00)
[2021-05-17] MEDS: BENZONATATE 100 MG CAP PO SCH (09:00)
[2021-05-17] MEDS: CARVEDILOL 3.125 MG TAB PO SCH (09:00)
[2021-05-17] MEDS: NON-FORMULARY MEDICATION (Cyclosporine (Restasis) 1 DROP) OU SCH ×2 (09:10→16:20)
[2021-05-17] MEDS: HEPARIN SOD (PORCINE) 5,000 UNIT/ML VIAL SC SCH ×2 (09:10→18:09)
[2021-05-17] MEDS: BIMATOPROST(OPTH) 2.5 ML BOTTLE OP SCH (09:10)
[2021-05-17] MEDS: NITROGLYCERIN 0.2 MG/HR PATCH TOP SCH (09:10)
[2021-05-17] MEDS: METHYLPREDNISOLONE SOD SUCC 40 MG/ML VIAL 1ML IV SCH (09:10)
[2021-05-17] MEDS: BRIMONIDINE/TIMOLOL (OPTH SOLN 5 ML DRPETTE OP SCH (09:10)
[2021-05-17 09:19] VITALS: BP 180/90
[2021-05-17] MEDS ORDERED: FENTANYL CITRATE/PF 100MCG/2 ML INJ IV PRN (09:45)
[2021-05-17] MEDS ORDERED: FENTANYL 25 MCG/HR PATCH TOP SCH (10:30)
[2021-05-17] MEDS: DEXTROSE 5% 1,000 ML IV SCH (11:00)
[2021-05-17 12:00] VITALS: BP 186/86
[2021-05-17] MEDS ORDERED: LORAZEPAM INJ 2 MG/ML VIAL IV PRN (15:15)
[2021-05-17] MEDS: MORPHINE SULFATE INJ 2 MG/ML SYR IV SCH ×3 (16:19→21:07)
[2021-05-17] MEDS: DEXMEDETOMIDINE 400MCG/NS100ML 100 ML IV PRN (17:48)
[2021-05-17] MEDS: LORAZEPAM INJ 2 MG/ML VIAL IV SCH ×2 (18:08→23:57)
[2021-05-17 20:00] VITALS: BP 178/89
[2021-05-17 21:00] VITALS: BP 178/89
[2021-05-18] VITALS (11 sets, daily range): BP systolic 109–171; BP diastolic 63–90
[2021-05-18] MEDS: MORPHINE SULFATE INJ 2 MG/ML SYR IV SCH ×2 (00:05→02:55)
[2021-05-18] MEDS: ALBUTEROL/IPRATROPIUM 3 ML NEB NEB SCH (01:26)
[2021-05-18] MEDS: DEXTROSE 5% 1,000 ML IV SCH ×2 (02:40→22:40)
[2021-05-18] MEDS: LORAZEPAM INJ 2 MG/ML VIAL IV SCH ×6 (04:16→21:15)
[2021-05-18] MEDS: MORPHINE SULFATE INJ 4 MG/ML INJ 1ML IV SCH ×6 (05:45→21:15)
[2021-05-18] MEDS: METOPROLOL TARTRATE INJ 1 MG/ML VIAL IV SCH ×3 (05:45→18:11)
[2021-05-18] MEDS ORDERED: METHYLPREDNISOLONE SOD SUCC 40 MG/ML VIAL 1ML IV SCH (07:30)
[2021-05-18] MEDS: BRIMONIDINE/TIMOLOL (OPTH SOLN 5 ML DRPETTE OP SCH (08:11)
[2021-05-18] MEDS: BIMATOPROST(OPTH) 2.5 ML BOTTLE OP SCH (08:11)
[2021-05-18] MEDS: NON-FORMULARY MEDICATION (Cyclosporine (Restasis) 1 DROP) OU SCH ×2 (08:12→15:55)
[2021-05-18] MEDS: HEPARIN SOD (PORCINE) 5,000 UNIT/ML VIAL SC SCH (08:13)
[2021-05-18] MEDS ORDERED: ACETAMINOPHEN 650 MG SUPP PR PRN (22:30)
[2021-05-19] VITALS: BP 100/67
[2021-05-19] MEDS: METOPROLOL TARTRATE INJ 1 MG/ML VIAL IV SCH
[2021-05-19] MEDS: MORPHINE SULFATE INJ 4 MG/ML INJ 1ML IV SCH
[2021-05-19] MEDS: LORAZEPAM INJ 2 MG/ML VIAL IV SCH (00:43)
== END 2021-05-19 05:53 | disposition expired | DRG 177 ==
LOC: ER 08:22 → ERHOLD 11:43 → MED/SURG3 13:10 → IMCU 05-13 01:21
PROVIDERS: ADMIT Internal Medicine; ATTEND Internal Medicine
PROC: 02HV33Z Insertion of Infusion Device into Superior Vena Cava, Percutaneous Approach (ICD-10-PCS; principal; 2021-05-10)
PROC: 5A09457 Assistance with Respiratory Ventilation, 24-96 Consecutive Hours, Continuous Positive Airway Pressure (ICD-10-PCS; 2021-05-13)
DX: J69.0 Pneumonitis due to inhalation of food and vomit (principal); A41.9 Sepsis, unspecified organism; N17.0 Acute kidney failure with tubular necrosis; J96.21 Acute and chronic respiratory failure with hypoxia; E22.2 Syndrome of inappropriate secretion of antidiuretic hormone; E87.2 Acidosis; N17.9 Acute kidney failure, unspecified; N18.4 Chronic kidney disease, stage 4 (severe); F03.90 Unspecified dementia, unspecified severity, without behavioral disturbance, psychotic disturbance, mood disturbance, and anxiety; N18.32 Chronic kidney disease, stage 3b; I12.9 Hypertensive chronic kidney disease with stage 1 through stage 4 chronic kidney disease, or unspecified chronic kidney disease; E03.9 Hypothyroidism, unspecified; F41.9 Anxiety disorder, unspecified; K21.9 Gastro-esophageal reflux disease without esophagitis; Z90.49 Acquired absence of other specified parts of digestive tract; Z88.1 Allergy status to other antibiotic agents; Z88.8 Allergy status to other drugs, medicaments and biological substances; E86.0 Dehydration; M21.942 Unspecified acquired deformity of hand, left hand; M21.941 Unspecified acquired deformity of hand, right hand; Z20.822 Contact with and (suspected) exposure to COVID-19; M05.10 Rheumatoid lung disease with rheumatoid arthritis of unspecified site; J84.178 Other interstitial pulmonary diseases with fibrosis in diseases classified elsewhere; Z83.3 Family history of diabetes mellitus; Z82.3 Family history of stroke; Z87.891 Personal history of nicotine dependence; D50.9 Iron deficiency anemia, unspecified; I16.0 Hypertensive urgency; M54.9 Dorsalgia, unspecified; Z66 Do not resuscitate; Z51.5 Encounter for palliative care
CPT/HCPCS: 36415; 36569; 36600; 71045; 71250; 74230; 78580; 80048; 80053; 81001; 82550; 82553; 82607; 82746; 82805; 82947; 82948; 83540; 83735; 83880; 83935; 84100; 84133; 84295; 84300; 84436; 84443; 84466; 84479; 84484; 84520; 84550; 85007; 85025; 85027; 85651; 87070; 87205; 93005; 93306; 94640; 94660; 94667; 94669; 99284; A9540; J0360; J0456; J1644; J1756; J1940; J2060; J2185; J2270; J2543; J2920; J3010; J3370; J3411; J3420; J3480; J7030; J7050; J7070; J7512; U0002